=== PATIENT | female | born 1990 | race Caucasian/White ===

== ENCOUNTER 2021-03-17 16:11 | Inpatient (IN) | payer BC, SELFPAY ==
[2021-03-17] VITALS (23 sets, daily range): BP systolic 104–193; BP diastolic 51–94; PULSE 82–110; TEMP 36–36.4; BMI 47.4
[2021-03-17 17:22] LABS: Basophils % 0.1 %; Eosinophils % 0.1 %; Hematocrit 32.4 % (37.0-47.0); Hemoglobin 10.3 g/dL (11.5-15.3); Mean Corpuscular HGB Conc 31.8 g/dL (30.0-36.0); Mean Corpuscular Hemoglobin 29.3 pg (28.0-34.0); Mean Platelet Volume 10.1 fL (7.4-10.4); Monocytes # 0.5 10^3/uL (0.2-0.9); Monocytes % 7.6 %; Neutrophils # 5.41 10^3/uL (1.8-7.7); Neutrophils % 77.9 %; Nucleated Red Blood Cells % 0 %; Platelet Count 232 10^3/cmm (130-400); Red Blood Count 3.52 10^6/uL (4.1-5.3); Red Cell Distribution Width 14.8 % (12.1-15.1)
[2021-03-17 18:03] LABS: Add Urine Microscopic? YES; Bilirubin Urine Neg (Negative); Blood Urine 2+ (Negative); Glucose Urine UA Norm (Normal); Ketones Urine 2+ (Negative); Leukocyte Esterase Urine Negative (Negative); Nitrate Urine Negative (Negative); Protein Urine Neg (Negative); Specific Gravity, Urine 1.015 (1.005-1.030); Urine Appearance Clear (CLEAR); Urine Color Yellow (Yellow); Urobilinogen Urine Norm (Negative); pH Urine 6.5 (5-7)
[2021-03-17 18:04] LABS: Add Urine Culture? No; Bacteria Urine 2+ /hpf; RBC Urine 0-4 /hpf (0-2)
[2021-03-17] MEDS: dextrose 5%-lactated ringers 1,000 ML 125 ML IV (18:11)
[2021-03-17] MEDS: ampicillin 2,000 MG in sodium chloride 0.9% (plus) 50 ML 100 MG IV (18:11)
[2021-03-17] MEDS: miSOPROStol 100 mcg tablet 25 MCG VAGINAL ×2 (18:20→23:08)
[2021-03-17] MEDS: labetalol 5 mg/mL SDV 20mL 20 MG IVP (18:59)
[2021-03-17 19:17] LABS: Urine Creatinine 129 mg/dL (28-217)
[2021-03-17 19:19] LABS: Alanine Aminotransferase 9 U/L (0-33); Albumin Level 3.3 g/dL (3.5-5.2); Alkaline Phosphatase 84 IU/L (35-105); Anion Gap 13.7 (5-19); Aspartate Amino Transferase 16 U/L (0-32); Blood Urea Nitrogen 7 mg/dL (6-20); Calcium 8.3 mg/dL (8.5-10.5); Carbon Dioxide 22 mmol/L (22-29); Chloride 106 mmol/L (98-107); Globulin 2.7 g/dL (1.3-4.6); Glomerular Filtration Rate 187.4 mL/min (90-130); Glucose 98 mg/dL (65-115); Osmolality Calculated 284 mOsm/kg (285-295); Potassium 3.7 mmol/L (3.5-5.1); Sodium 138 mmol/L (136-145); Total Bilirubin 0.2 mg/dL (0.15-1.2); Uric Acid 3.8 mg/dL (2.4-5.7)
[2021-03-17 19:21] LABS: UPRO/UCREAT Ratio 0.17 mg/mg CR; Urine Protein Random 22 mg/dL
[2021-03-17] MEDS: magnesium sulfate premix 4 GM/100 ML PREMIX IV (20:13)
[2021-03-17] MEDS: dextrose 5%-lactated ringers 1,000 ML 100 ML IV (20:14)
[2021-03-17] MEDS: magnesium sulfate premix 20 GM/500 ML BAG IV (20:40)
[2021-03-17] MEDS: ampicillin 1,000 MG in sodium chloride 0.9% (plus) 50 ML 100 MG IV (22:38)
[2021-03-18] VITALS (197 sets, daily range): BP systolic 103–167; BP diastolic 46–105; PULSE 71–113; RESP 15–17; TEMP 35.6–36.1; O2SAT 93–100
[2021-03-18] MEDS: fentaNYL 50 mcg/mL INJ 2mL IVP ×2 (00:17→13:04)
[2021-03-18] MEDS: alum-mag-hydroxide-sime 30 mL UDC PO (01:52)
[2021-03-18] MEDS: ampicillin 1,000 MG in sodium chloride 0.9% (plus) 50 ML 100 MG IV (02:46)
[2021-03-18] MEDS: acetaminophen 325 mg Tablet 650 MG PO (02:46)
[2021-03-18] MEDS: ondansetron 2 mg/ML SDV 2 mL 4 MG IVP ×3 (02:47→14:10)
[2021-03-18] MEDS: miSOPROStol 100 mcg tablet 25 MCG VAGINAL (03:48)
[2021-03-18] MEDS: magnesium sulfate premix 20 GM/500 ML BAG IV ×2 (06:26→16:44)
[2021-03-18] MEDS: SODIUM CHLORIDE 0.9% IV (08:40)
[2021-03-18] MEDS: AMPICILLIN IV (08:40)
--- NOTE | 2021-03-18 09:25 | ANES.PROC ---
Anesthesia Procedures Procedure/Date: 03/18/21 Epidural: Time Out Performed: Yes Consents Signed: Procedure Consent and NPO Consent Consent: requested by attending/covering physician, from patient, risks and benefits reviewed and patient agrees to proceed Lumbar Level: L3-L4 Epidural position: sitting Epidural procedure: sterile prep of area, 1% lidocaine to numb the area, 18 g needle, negative for paresthesia passed, neg for paresthesia, test dose given, 1.5% xylocaine 1:200k epi (5), 0.2% Ropivacaine bolus ml (5), placed PCEA, no systemic response, sterile dressing applied, L.U.D. no apparent complications and 0.2% Ropiavacaine @ mls/hr (13) Additional Comments: ALY at 7 cm, threaded to 13 cm
[2021-03-18] MEDS: oxytocin 30 UNIT/500 ML BAG IV (11:27)
--- NOTE | 2021-03-18 13:54 | ANES.PROC ---
Anesthesia Procedures Procedure/Date: 03/18/21 Epidural: Time Out Performed: Yes Consents Signed: Procedure Consent, NPO Consent and No Consent Needed Consent: requested by attending/covering physician, from patient, risks and benefits reviewed and patient agrees to proceed Lumbar Level: L3-L4 Epidural position: sitting Epidural procedure: sterile prep of area, 1% lidocaine to numb the area, 18 g needle, negative for paresthesia passed, neg for paresthesia, test dose given, 1.5% xylocaine 1:200k epi, placed PCEA, no systemic response, sterile dressing applied, L.U.D. no apparent complications and 0.2% Ropiavacaine @ mls/hr (13) Additional Comments: ALY at 7 cm, threaded to 13 cm Other Information: Patient hypotensive and had syncopal epsisode. IV bolus given by nurse and verbal order to pause pump. After BP stabilzed over next couple of hours nurse asked for verbal order to restart, but it was discovered at that time that the epidural tubing had become disconnected from the yellow cap. Time of occurrence was unknown, so decision was made to replace epidural due to risk of infection. Upon removing epidural, tape was also up d/t to excess patient's excess perspiration and catheter was now 12 cm at skin. Epidural removed, skin cleansed with chloraprep. Benzoin spray used to secure new epidural dressing in place. No bolus given d/t prior syncope and pump started at 10 ml/hr.
[2021-03-18] MEDS: miSOPROStol 200 mcg Tablet 800 MCG PR (14:41)
--- NOTE | 2021-03-18 14:57 | P.PCNOB_ITS ---
Delivery Note: Date of delivery: March 18, 2021 Pre-delivery diagnoses: 1. 37-week estimated gestational age female 2. Preeclampsia Post-delivery diagnoses: Same Op report anesthesia: Epidural Estimated blood loss (mL): 800 Pre-Delivery Course: The patient presented to the hospital the night prior to delivery due to gestational hypertension. After arriving the hospital she was noted to have a number of severe blood pressures. She is given labetalol x1. She was started on magnesium. A preeclamptic panel was performed which was found to be negative. She was then given Cytotec 25 mcg x 3 an epidural was placed. An amniotomy was performed. The patient progressed to complete without difficulty. Delivery: DELIVERY: The patient progressed to complete without difficulty. She delivered a male with a weight of 6 pounds 12 ounces with Apgars of 8, 9. The baby was delivered from the OP position and placed on the mother's abdomen. The cord was then clamped and cut 1 minute after delivery. There was a nuchal cord x1. There was no meconium. The placenta and 3 vessel cord were delivered intact shortly thereafter. The perineum and vaginal vault were carefully examined. Several small vaginal wall lacerations with minimal bleeding were noted. Both the mother and the baby were in stable condition. A&P Assessment and plan (1) 37 weeks gestation of : Status: Acute (2) Preeclampsia: The patient has not had any other signs or symptoms of preeclampsia other than her initial elevated blood pressures. The patient has been known to spike high blood pressures in the past when she is anxious. As such, the possibility that her elevated blood pressures were mostly a function of her anxiety is high. I am going to keep her on magnesium for 12 hours . And we will adjust her approach depending on her blood pressures. 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
[2021-03-18] MEDS: carboprost tromethamine 250 mcg/mL Amp IM (15:04)
[2021-03-18] MEDS: oxytocin 30 UNIT/500 ML BAG 600 UNIT IV (15:11)
[2021-03-18] MEDS: dextrose 5%-lactated ringers 1,000 ML 125 ML IV (16:44)
[2021-03-18] MEDS: HYDROcodone-acetaminophen 5-325 mg Tablet PO (18:19)
[2021-03-18] MEDS: docusate sodium 100 mg Capsule PO (18:19)
[2021-03-18 20:07] LABS: Hematocrit 28.2 % (37.0-47.0); Hemoglobin 8.8 g/dL (11.5-15.3); Mean Corpuscular HGB Conc 31.2 g/dL (30.0-36.0); Mean Corpuscular Hemoglobin 29.3 pg (28.0-34.0); Mean Platelet Volume 9.9 fL (7.4-10.4); Platelet Count 215 10^3/cmm (130-400); Red Cell Distribution Width 14.8 % (12.1-15.1); White Blood Count 12.4 10^3/uL (4.0-10.0)
[2021-03-19] VITALS (25 sets, daily range): BP systolic 117–158; BP diastolic 56–109; PULSE 68–93; RESP 16; TEMP 36.1–36.7
[2021-03-19 04:58] LABS: Hematocrit 25.8 % (37.0-47.0); Mean Corpuscular Hemoglobin 29.5 pg (28.0-34.0); Mean Corpuscular Volume 95.2 fL (81-99); Mean Platelet Volume 9.7 fL (7.4-10.4); Platelet Count 176 10^3/cmm (130-400); Red Blood Count 2.71 10^6/uL (4.1-5.3); Red Cell Distribution Width 15.1 % (12.1-15.1); White Blood Count 7.7 10^3/uL (4.0-10.0)
--- NOTE | 2021-03-19 05:15 | PM.OBGYDC ---
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 She had not had any other symptoms of preeclampsia but she had had several blood pressures with a systolic blood pressure greater than 140s. As result she presented to the hospital where she was placed on Cytotec 25 mcg x 3. As a part of her initial evaluation she is found to have multiple systolic blood pressures that were greater than 160. As result the hypertensive protocol was initiated. She was placed on magnesium. Preeclamptic panel was performed which was found to be completely negative. After her initial dose of labetalol, no further doses of labetalol were necessary. After 3 doses of Cytotec, an amniotomy was performed. Her labor was later augmented with Pitocin. She progressed to complete and had an unremarkable delivery of a healthy appearing 37-week male . She did have moderate hemorrhage. She was given tranexamic acid. She was placed on Hemabate. She is given extra Pitocin. She also received Cytotec. Her bleeding eventually improved. She was maintained on magnesium for 12 hours . The remainder of her hospital stay was unremarkable. Information Peripartum Data: Delivery Method: Vaginal Physical Exam Narrative: EXAM NARRATIVE: The patient is alert. She appears comfortable. Her heart has a regular rate and rhythm with no murmurs appreciated. Lungs are clear to auscultation bilaterally. Her fundus is very firm and slightly above the umbilicus. Urinary Catheter Management^: Skinner: Cath Placed During This Visit: yes, but has since been removed by the nurse Reason for Continuing Indwelling Catheter: Accurate Measurement of Urinary Output in Critically Ill Patients Urinary Catheter Date of Insertion: 03/17/21 Urinary Catheter Time of Insertion: 20:10 Date Urinary Catheter Removed: 03/19/21 Time Urinary Catheter Discontinued: 02:00 Discharge Data Data Completed and Pending: Labs from last 24 hours 03/19/21 03/18/21 04:45 19:45 WBC 7.7 12.4 H RBC 2.71 L 3.00 L Hgb 8.0 L 8.8 L Hct 25.8 L 28.2 L MCV 95.2 94.0 MCH 29.5 29.3 MCHC 31.0 31.2 RDW 15.1 14.8 Plt Count 176 215 MPV 9.7 9.9 Vitals: Last Vital Signs Temp 97.0 F L 03/19/21 00:35 Pulse 76 03/19/21 04:29 Resp 17 03/18/21 15:59 BP 121/59 03/19/21 04:29 Pulse Ox 100 03/18/21 14:25 Discharge Plan Discharge Patient Disposition: Home Condition: Stable Prescriptions: New hydrocodone-acetaminophen 5-325 mg Tablet 1 tab PO Q6H PRN (Reason: Moderate To Severe Pain) Qty: 20 RF: 0 Continued ncpziivj-xay-Nb-FA 1 mg Tablet 1 tab PO DAILY RF: 0 Discharge Orders: Discharge Order (Routine); Ordered 03/19/21 Ordered By: Carloz Flores Referrals: Carloz Flores MD [Primary Care Provider] - 4-7 days (Also set up visit in 6 weeks.) Discharge Diet: Usual diet Discharge Activity: Limit activity as instructed Patient Instructions: Opioid Safety Discharge Attestations WHOLESALE PARTS SALESPERSON Time Spent in Discharge Care*: less than 30 min Specific Discharge Activities: Specific discharge activities: educating patient Coding Level of Care Code Acute Resolution Agent for Chg Fwd Diagnoses Spontaneous vaginal delivery O80 Preeclampsia O14.90 37 weeks gestation of Z3A.37
[2021-03-19] MEDS: prenatal vitamin Capsule 1 CAP PO (08:55)
[2021-03-19] MEDS: docusate sodium 100 mg Capsule PO ×2 (08:55→18:03)
--- NOTE | 2021-03-19 09:42 | ANE.PACU2 ---
Inpatient post-anesthesia follow up: Airway intact: Yes Vital signs: Temperature 97.0 F Pulse Rate 81 Respiratory Rate 17 Blood Pressure 117/62 Pulse Oximetry 100 Oxygen Delivery Me thod Room Air Oxygen Flow Rate 10 Fraction of Inspir ed Oxygen Hydration adequate: Yes Nausea and vomiting: No Pain level: 2 Mental status: Baseline Additional Comments: Bruising at epidural site, mild tenderness to palpation. No erythema, no purulence. Denies headache, residual numbness/tingling/weakness in legs. Epidural tubing had become disconnected at hub for unknown length of time and dressing was loose due to perspiration with site exposure for first epidural catheter. Informed patient and partner to continue to monitor for signs of infection such as purulence, erythema, increased pain, fever or neurologic deficits such as loss of bowel or bladder control, and leg numbness/weakness.
--- NOTE | 2021-03-19 16:56 | PC.NURSE ---
update to Dr Flores. ok to d/c home, follow up early next week as discussed with pt this morning
[2021-03-19] MEDS: measles,mumps,rubella pf Vial (w/diluent) 0.5 ML SUBCUT (18:03)
== END 2021-03-19 19:01 | disposition home or self-care (01) | DRG 807 ==
LOC: OPOB 16:14 → OBGYN 16:15 → OPOB 16:18 → OBGYN 16:23
PROVIDERS: Admitting Provider Family Medicine; PCP Family Medicine; Visit Provider Family Medicine
DX: O13.4 Gestational [pregnancy-induced] hypertension without significant proteinuria, complicating childbirth (principal); Z37.0 Single live birth; O69.81X0 Labor and delivery complicated by cord around neck, without compression, not applicable or unspecified; Z3A.37 37 weeks gestation of pregnancy
CPT/HCPCS: 12345; 51702; 59409; 80053; 81001; 82570; 84156; 84550; 85025; 85027; 90707; 96372; 96374; 96375; J0290; J2405; J2795; J3010; J3475; J3490

== ENCOUNTER 2021-12-15 09:54 | Observation (INO) | payer BC, SELFPAY ==
[2021-12-15] VITALS (12 sets, daily range): BP systolic 96–135; BP diastolic 59–95; PULSE 83–144; RESP 18–24; TEMP 36.4–36.6; O2SAT 95–99; BMI 43.4
--- NOTE | 2021-12-15 10:15 | W.ED.ARRPALP ---
HPI - Arrhythmia/Palpitations General: Chief Complaint: Arrhythmia/Palpitations Stated Complaint: SOB, High Heart Rate Time Seen by Provider: 12/15/21 10:11 Source: patient Mode of arrival: ambulatory Limitations: no limitations History of Present Illness: 31-year-old female presents to the emergency room with a complaint of rapid heart rate and shortness of breath. This began yesterday she has a monitor at home and the monitor was reading up in the 70s with her heart racing this morning was reading in the 140s. It is intermittently been bothering her overnight she has not taken any decongestants use any nasal sprays no other prescription medication she is not on any eehj-epx-gzbeper or prescription medications that have changed recently. She has no known history of A. fib or SVT. She is not had any chest pain. No recent long travel in car or airplane. MD complaint: rapid heart beat and heart racing Onset (ago): day(s) (1) Duration: constant Severity: moderate Context: occurred during rest Associated symptoms: Reports anxiety and short of breath; Deny cough, diaphoresis, muscle cramps, nausea, paresthesias, pre-syncope, sense of impending doom, syncope or vomiting Review of Systems Const: Denies: fever(s), chills or diaphoresis ENMT: Denies: throat pain, ear or mastoid pain, nasal discharge or nasal congestion Card: Reports: palpitations and lightheadedness; Denies: chest pain, irregular heart rhythm, syncope or pre-syncope Resp: Reports: dyspnea; Denies: productive cough or non-productive cough GI: Denies: abdominal pain, nausea or vomiting : Denies: flank pain, difficulty voiding, dysuria, urinary frequency or urinary urgency Musc: Denies: muscle cramps Skin/Breast: Denies: rash or pruritus Psych: Reports: anxiety PFSH ED PFSH: Medical History 37 weeks gestation of Morbid obesity Preeclampsia Spontaneous vaginal delivery Family History Other CAD (coronary artery disease) Clotting disorder Social History Smoking and tobacco status: never smoked Alcohol intake: never Substance/Drug Use: never Caregiver/support person: Yes Lives independently: Yes Household members: family Housing: House Marital status: Physical Exam Const: COMMON NORMALS: no acute distress GENERAL APPEARANCE: cooperative and comfortable ORIENTATION/CONSCIOUSNESS: Yes awake, Yes oriented to person, Yes oriented to place and Yes oriented to time HENMT: COMMON NORMALS: normocephalic, atraumatic and hearing grossly normal bilaterally HEAD & SCALP: normocephalic and atraumatic Neck/C-Spine: COMMON NORMALS: no JVD Resp: COMMON NORMALS: normal respiratory effort, No retractions, No use of accessory muscles and clear to auscultation bilaterally AUSCULTATION: clear to auscultation bilaterally Cardio: COMMON NORMALS: no JVD, regular rhythm and No murmurs present (Cardio) RATE: tachycardic RHYTHM: regular rhythm GI: COMMON NORMALS: Soft to palpation and No hepatosplenomegaly present AUSCULTATION: Yes normoactive bowel sounds PALPATION: Yes Soft to palpation, No Tenderness to palpation present (GI), No Guarding due to palpation present (GI) and Yes No hepatosplenomegaly present : COMMON NORMALS: Yes no CVA tenderness BLADDER/KIDNEY EXAM: Yes no CVA tenderness Back/Pelvis: COMMON NORMALS: no CVA tenderness Extremity: COMMON NORMALS: normal to inspection, capillary refill normal, no clubbing, cyanosis or edema, no calf tenderness and no pedal edema Neuro: SENSORIUM/ORIENTATION: Yes oriented to person, Yes oriented to place and Yes oriented to time Skin: COMMON NORMALS: no rashes or lesions noted GENERAL SKIN EXAM: no rashes or lesions noted Course Vital Signs: Vital signs: Vital Signs Temperature 97.5 F L 12/15/21 10:13 Pulse Rate 105 H 12/15/21 15:46 Respiratory Rate 19 H 12/15/21 15:46 Blood Pressure 127/83 12/15/21 15:46 Pulse Oximetry 95 12/15/21 15:46 MDM - Arrhythmia/Palpitations Medical Decision Making Patient has significant elevation in troponin. This concerned that it may be a lab error so repeated and it was consistent. She was very sensitive to the beta-michael and her rate has been well controlled now. CTA of the chest showed no PE but did show questionable groundglass infiltrates. Will test for COVID have discussed with hospitalist will admit and consult cardiology. Also ordered a echocardiogram. Medical Records I reviewed the patient's medical records. Lab Data I reviewed the patient's lab results. : 12/15/21 10:21 12/15/21 10:21 Radiology Impressions Chest X-Ray 12/15/21 10:19 IMPRESSION: Unremarkable chest radiograph. Chest CTA 12/15/21 11:50 IMPRESSION: 1. Proximal main pulmonary arteries are normal. No evidence of pulmonary embolus. 2. Slight hazy groundglass opacities in the LEFT greater than RIGHT upper lobes likely infectious or inflammatory. No focal pneumonia or pleural fluid. 3. No other significant findings. Laboratory Results WBC 16.1 10^3/uL (4.0-10.0) H 12/15/21 10:21 RBC 4.60 10^6/uL (4.1-5.3) 12/15/21 10:21 Hgb 12.9 g/dL (11.5-15.3) 12/15/21 10:21 Hct 40.6 % (37.0-47.0) 12/15/21 10:21 MCV 88.3 fl (81-99) 12/15/21 10:21 MCH 28.0 pg (28.0-34.0) 12/15/21 10:21 MCHC 31.8 g/dL (30.0-36.0) 12/15/21 10:21 RDW 14.7 % (12.1-15.1) 12/15/21 10:21 Plt Count 264 10^3/cmm (130-400) 12/15/21 10:21 MPV 9.7 fL (7.4-10.4) 12/15/21 10:21 Neut % (Auto) 90.1 % 12/15/21 10:21 Lymph % (Auto) 5.4 % 12/15/21 10:21 [place] % (Auto) 3.7 % 12/15/21 10:21 Eos % (Auto) 0.1 % 12/15/21 10:21 Baso % (Auto) 0.2 % 12/15/21 10:21 Neut # (Auto) 14.53 10^3/uL (1.8-7.7) H 12/15/21 10:21 Lymph # (Auto) 0.9 10^3/uL (0.8-4.8) 12/15/21 10:21 [place] # (Auto) 0.6 10^3/uL (0.2-0.9) 12/15/21 10:21 Eos # (Auto) 0.0 10^3/uL (0.0-0.8) 12/15/21 10:21 Baso # (Auto) 0.0 10^3/uL (0.0-0.1) 12/15/21 10:21 Nucleated RBC % (auto) 0 % 12/15/21 10:21 Nucleated RBCs # 0.0 /100WBC 12/15/21 10:21 ESR 22 mm/hr (0-15) H 12/15/21 10:21 D-Dimer 0.48 ug/mIFEU (0-0.59) 12/15/21 10:21 Sodium 137 mmol/L (136-145) 12/15/21 10:21 Potassium 4.1 mmol/L (3.5-5.1) 12/15/21 10:21 Chloride 104 mmol/L (98-107) 12/15/21 10:21 Carbon Dioxide 20 mmol/L (22-29) L 12/15/21 10:21 Anion Gap 17.1 (5-19) 12/15/21 10:21 BUN 16 mg/dL (6-20) 12/15/21 10:21 Creatinine 0.6 mg/dL (0.5-0.9) 12/15/21 10:21 GFR Calculation 117.4 mL/min (90-130) 12/15/21 10:21 Glucose 100 mg/dL (65-115) 12/15/21 10:21 Calculated Osmolality 285 mOsm/kg (285-295) 12/15/21 10:21 Lactic Acid 2.3 mmol/L (0.5-2.2) H 12/15/21 10:21 Lactic Acid (Sepsis) 1.2 mmol/L (0.5-2.2) 12/15/21 12:50 Calcium 9.5 mg/dL (8.5-10.5) 12/15/21 10:21 Magnesium 2.0 mg/dL (1.7-2.3) 12/15/21 10:21 Iron 17 ug/dL (37-145) L 12/15/21 13:44 TIBC 346 mcg/dl 12/15/21 13:44 % Saturation 4.9 % (20-50) L 12/15/21 13:44 Unsat Iron Binding 329 ug/dL (112-347) 12/15/21 13:44 Total Bilirubin 0.4 mg/dL (0.15-1.2) 12/15/21 10:21 AST 23 U/L (0-32) 12/15/21 10:21 ALT 13 U/L (0-33) 12/15/21 10:21 Alkaline Phosphatase 44 IU/L (35-105) 12/15/21 10:21 Creatine Kinase 73 U/L (26-192) 12/15/21 13:44 Troponin T Gen 5 ng/L 151 ng/L (0-10) H* 12/15/21 13:44 Troponin T Baseline 13 ng/L (0-10) H 12/15/21 10:21 Troponin T 120 Minute 169.3 ng/L (0-10) H 12/15/21 12:42 Delta Troponin T 156.3 ABS# (0-10) H* 12/15/21 12:42 C-Reactive Protein 79.9 mg/L (0.0-4.9) H 12/15/21 13:44 Total Protein 7.1 g/dL (6.6-8.7) 12/15/21 10:21 Albumin 4.3 g/dL (3.5-5.2) 12/15/21 10:21 Globulin 2.8 g/dL (1.3-4.6) 12/15/21 10:21 Lipase 32 U/L (13-60) 12/15/21 10:21 TSH 2.93 uIU/mL (0.27-4.20) 12/15/21 10:21 HCG, Qual Negative (Negative) 12/15/21 10:21 Discharge Plan Discharge Patient Disposition: Admitted As Inpatient Admit Provider: Matthew Jarvis Clinical Impression: Elevated troponin, Tachycardia, Shortness of breath Condition: Stable Coding Level of Care Code ED Bias Cutting Machine Operator for Alejandro Rizo
--- NOTE | 2021-12-15 10:19 | XR_ITS ---
WS: [id number] Exam: XR chest 1V portable [id number] Date/Time of Exam: 12/15/2021 10:25 AM Reason For Exam: dyspnea No priors. Findings: The lungs are clear and fully expanded. Costophrenic angles are sharp. No infiltrates. Bronchovascula r relief appears normal. Cardiac silhouette is unremarkable. Bony elements are intact. XR/XR chest 1V portable [id number] IMPRESSION: Unremarkable chest radiograph.
--- NOTE | 2021-12-15 10:19 | ECG_ITS ---
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 Measurements Intervals [place] Rate: 106 P: 42 ID: [id number] QRS: 70 QRSD: 100 T: 9 QT: 325 QTc: 432 Interpretive Statements SINUS TACHYCARDIA POSSIBLE RIGHT VENTRICULAR CONDUCTION DELAY [RSR (QR) IN V1/V2] ABNORMAL RHYTHM ECG No previous ECG available for comparison Electronically Signed On 12-15-2021 18:56:13 CDT by Lynnette Macedo M.D. [email or web address]
[2021-12-15] MEDS: metoprolol tartrate 1 mg/1 mL SDV 5 mL 5 MG IVP (10:34)
[2021-12-15] MEDS: metoprolol tartrate 25 mg Tablet PO ×2 (10:34→20:23)
[2021-12-15 10:45] LABS: Basophils % 0.2 %; Eosinophils % 0.1 %; Hematocrit 40.6 % (37.0-47.0); Hemoglobin 12.9 g/dL (11.5-15.3); Lymphocytes # 0.9 10^3/uL (0.8-4.8); Lymphocytes % 5.4 %; Mean Corpuscular HGB Conc 31.8 g/dL (30.0-36.0); Mean Corpuscular Volume 88.3 fl (81-99); Mean Platelet Volume 9.7 fL (7.4-10.4); Monocytes # 0.6 10^3/uL (0.2-0.9); Monocytes % 3.7 %; Neutrophils # 14.53 10^3/uL (1.8-7.7); Neutrophils % 90.1 %; Nucleated Red Blood Cells % 0 %; Platelet Count 264 10^3/cmm (130-400); Red Cell Distribution Width 14.7 % (12.1-15.1); White Blood Count 16.1 10^3/uL (4.0-10.0)
[2021-12-15 10:53] LABS: Alanine Aminotransferase 13 U/L (0-33); Albumin Level 4.3 g/dL (3.5-5.2); Alkaline Phosphatase 44 IU/L (35-105); Blood Urea Nitrogen 16 mg/dL (6-20); Calcium 9.5 mg/dL (8.5-10.5); Carbon Dioxide 20 mmol/L (22-29); Chloride 104 mmol/L (98-107); Globulin 2.8 g/dL (1.3-4.6); Glomerular Filtration Rate 117.4 mL/min (90-130); Glucose 100 mg/dL (65-115); Lipase 32 U/L (13-60); Osmolality Calculated 285 mOsm/kg (285-295); Sodium 137 mmol/L (136-145); Total Bilirubin 0.4 mg/dL (0.15-1.2); Total Protein 7.1 g/dL (6.6-8.7)
[2021-12-15 10:54] LABS: Lactic Sepsis W/Reflex 2.3 mmol/L (0.5-2.2); Troponin(5th) Baseline 13 ng/L (0-10)
[2021-12-15 10:57] LABS: Anion Gap 17.1 (5-19); Potassium 4.1 mmol/L (3.5-5.1)
[2021-12-15 10:58] LABS: Aspartate Amino Transferase 23 U/L (0-32)
[2021-12-15] MEDS: sodium chloride 0.9% 1,000 ML 999 ML IV ×2 (11:30→12:42)
--- NOTE | 2021-12-15 11:50 | CT_ITS ---
WS: [id number] CTA OF THE CHEST WITH PULMONARY EMBOLISM PROTOCOL TECHNIQUE: High-resolution contrast enhanced CTA of the chest with coronal and sagittal reformatted i mages with pulmonary embolism protocol. MIP images are also reviewed. CLINICAL INFORMATION: tachycardia/dyspnea COMPARISON: None. DLP: 591.[address] scans at [facility] use at least one of these dose optimization techniques: automated e xposure control; mA and/or kV adjustment per patient size (includes targeted exams where dose is matc hed to clinical indication); or iterative reconstruction. FINDINGS: Both lungs are well aerated. No focal consolidation or pleural fluid. Subtle hazy groundglass opaciti es in the LEFT greater than RIGHT upper lobes likely infectious or inflammatory. No mediastinal or hilar lymphadenopathy. No axillary lymphadenopathy. Adrenal glands are normal. Proximal main pulmonary arteries are normal. Normal segmental and subsegmental pulmonary arteries. No evidence of pulmonary embolus. CT/CT angio chest PE protcl [id number] IMPRESSION: 1. Proximal main pulmonary arteries are normal. No evidence of pulmonary embol us. 2. Slight hazy groundglass opacities in the LEFT greater than RIGHT upper lobe s likely infectious or inflammatory. No focal pneumonia or pleural fluid. 3. No other significant findings.
[2021-12-15 12:01] LABS: HCG, Serum Qual Negative (Negative)
[2021-12-15 12:16] LABS: Reflex Lactate Order REFLEX LACTIC ORDERD
--- NOTE | 2021-12-15 12:19 | ECG_ITS ---
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 Measurements Intervals [place] Rate: 101 P: 56 OR: 148 QRS: 89 QRSD: 98 T: 46 QT: 347 QTc: 450 Interpretive Statements SINUS TACHYCARDIA INCOMPLETE RIGHT BUNDLE BRANCH BLOCK [90+ ms QRS DURATION, TERMINAL R IN V1/V2, 40+ ms S IN I/aVL/V4/V5/V6] ABNORMAL RHYTHM ECG Compared to ECG 12/15/2021 10:50:52 Incomplete right bundle-branch block now present Electronically Signed On 12-16-2021 22:32:32 CDT by George Nascimento M.D. [id number]
--- NOTE | 2021-12-15 12:33 | PC.NURSE ---
informed dr. nava of bp of 86/60 verbalized understanding vo toadm 1 l of ns at 999ml/hr.
--- NOTE | 2021-12-15 12:43 | PC.NURSE ---
1030 PT placed on continuos NIBP, SpO2, and CM
[2021-12-15 13:05] LABS: Thyroid Stimulating Hormone 2.93 uIU/mL (0.27-4.20)
[2021-12-15 13:12] LABS: Lactic Acid level (Lactate) 1.2 mmol/L (0.5-2.2)
[2021-12-15 13:22] LABS: Troponin 5 2HR 169.3 ng/L (0-10)
[2021-12-15 13:23] LABS: Troponin 5 2HR Delta 156.3 ABS# (0-10)
[2021-12-15] MEDS: iohexol 350 mg/mL 100 mL Btl IV (13:44)
[2021-12-15] MEDS: enoxaparin 120 mg/0.8 mL Syringe 110 MG SUBCUT (13:56)
[2021-12-15 14:03] LABS: Troponin T (5th) Once 151 ng/L (0-10)
--- NOTE | 2021-12-15 14:19 | PC.NURSE ---
DR. DUNNE AT BEDSIDE SPEAKING WITH PT. PT IS IN NAD.
--- NOTE | 2021-12-15 14:35 | PM.CONSULT ---
Providers/Reason For Consult Consulting Physician/Specialty*: George Nascimento MD/ Cardiology Reason for Consult*: Chest pain/ tachycardia Requesting Physician: Dr Collins Primary Care Provider: Carloz Flores MD History of Present Illness History of Present Illness Ileana Palmer is a 31 year old female with no significant prior cardiac history presented with symptoms of palpitations and chest discomfort. According to patient the night before admission she was having chest discomfort and palpitations. Chest pain was worse with breathing. It resolved after a couple of hours. Again this morning her pulse ox showed her heart rate was in 140s. She had chest discomfort to the hospital was found to have sinus tachycardia no ischemic changes noted. Troponin went significantly from 13 to 169 at 2 hours. Review of Systems Narrative: CONSTITUTIONAL: No fever chills weight loss or gain or night sweats. [] HEENT: Normocephalic, atraumatic.[] RESPIRATORY: No cough, sputum, hemoptysis or wheezing.[] CARDIOVASCULAR: No shortness of breath, chest pain, PND, orthopnea, lower extremity edema, presyncope or syncope. [] GI: no nausea vomiting diarrhea. [] TECHNICAL SERVICES LIBRARIAN: No numbness, tingling, weakness or loss of function in any part of the body. [] MUSCULOSKELETAL: No knee or joint pain or rashes. [] Medications/Allergies Home Medications Medication Instructions Recorded Confirmed Last Taken Type cetirizine 10 mg tablet (Zyrtec) 10 mg PO DAILY 12/15/21 12/15/21 Unknown History fluticasone propionate 50 1 spray INTRANASAL DAILY 12/15/21 12/15/21 Unknown History mcg/actuation nasal spray,suspension vit no.95-ferrous 2 tab PO DAILY 12/15/21 12/15/21 Unknown History fumarate 28 mg-folic acid 800 mcg tablet ( Multivitamins) Allergies Allergy/AdvReac Type Severity Reaction Status Date / Time No Known Allergies Allergy Verified 12/15/21 11:08 PFSH Acute PFSH: Medical History 37 weeks gestation of Morbid obesity Preeclampsia Spontaneous vaginal delivery Family History Other CAD (coronary artery disease) Clotting disorder Social History Smoking and tobacco status: never smoked Alcohol intake: never Substance/Drug Use: never Caregiver/support person: Yes Lives independently: Yes Household members: family Housing: House Marital status: Vitals/I&O/Wt Last Vital Signs Temp 97.5 F L 12/15/21 10:13 Pulse 144 H 12/15/21 10:13 Resp 19 H 12/15/21 10:13 BP 126/90 12/15/21 10:13 Pulse Ox 99 12/15/21 10:13 12/14/21 12/15/21 12/15/21 22:59 06:59 14:59 Intake Total 1000 / 1000 Balance 1000 / 1000 Weight last 48 hrs Weight 245 lb Physical Exam Narrative: GENERAL: Patient is alert, awake and oriented x3. [] NECK: No jugular vein distension. [] HEENT: No cyanosis. No icterus. No pallor. [] HEART: Regular S1 and S2. No murmur, rub or gallop. [] LUNGS: Clear to auscultate bilaterally. [] ABDOMEN: Soft, nontender and nondistended. Positive bowel sounds. No guarding, rebound or tenderness. [] CENTRAL NERVOUS SYSTEM: Grossly nonfocal. [] EXTREMITIES: Lower extremities with no edema bilaterally. Pulses palpable in the lower extremities, both dorsalis pedis and posterior tibial. [] Data : 12/16/21 03:46 12/16/21 03:46 Micro: Microbiology 12/15/21 12:50 Blood Culture - Preliminary Blood SPECIMEN COLLECTED 12/15/21 10:21 Blood Culture - Preliminary Blood SPECIMEN COLLECTED A&P Assessment and plan (1) Chest pain: Status: Acute (2) Shortness of breath: Status: Acute (3) Tachycardia: Status: Acute (4) Elevated troponin: Status: Acute Plan Patient had episodes of chest pain, palpitations and shortness of breath. Troponins increased significantly. However chest pain is atypical. EKG does not show any ischemic changes. CTA does not reveal pulmonary embolism. Differentials at this time include SVT vsmyocarditis vs ischemia Monitor on telemetry Continue aspirin Order echocardiogram. If third set of troponins starts downtrending, will obtain exercise MIBI. Thank you for involving us with care of this patient. We will continue to follow. Please call with questions. Coding Level of Care Code Acute Aquatic Centre Manager for Chg Fwd Diagnoses Chest pain R07.9 Shortness of breath R06.02 Tachycardia R00.0 Elevated troponin R77.8
--- NOTE | 2021-12-15 15:39 | USCV_ITS ---
Ileana Palmer Age: 31 Gender: F : 1990 Exam Date: 12/15/2021 16:00 Ordering Phys: Giovani Collins DO Technologist: ABELARDO Exam Location: [facility] [place] Indication: ELEVATED TROP, HIGH HR BP: 127 / 83 HR: 97 Rhythm: Sinus Technical Quality: Adequate MEASUREMENTS (Male / Female) Normal Values 2D ECHO LV Diastolic Diameter PLAX 3.5 cm 4.2 - 5.9 / 3.9 - 5.3 cm LV Systolic Diameter PLAX 1.5 cm IVS Diastolic Thickness 1.1 cm 0.6 - 1.0 / 0.6 - 0.9 cm IVS Systolic Thickness 1.9 cm LVPW Diastolic Thickness 1.1 cm 0.6 - 1.0 / 0.6 - 0.9 cm LVPW Systolic Thickness 1.8 cm LVOT Diameter 2.0 cm LV Ejection Fraction 2D Teich 88.4 % LV Ejection Fraction MOD 2C 62.5 % LV Ejection Fraction 2C AL 62.9 % LA Diameter 2.5 cm LA Width 3.0 cm LA Height 4.5 cm RA Width 2.6 cm RA Height 4.4 cm Aorta at Sinotubular Diameter 2.8 cm M-MODE Aortic Annulus Diameter 2.8 cm LA Ao Ratio MM 0.9 MV E Point Septal Separation 0.3 cm DOPPLER AV Peak Velocity 115.0 cm/s LVOT Peak Velocity 94.0 cm/s AV Area Cont Eq vti 2.7 cm squared AV Area Cont Eq pk 2.5 cm squared MV Area PHT 4.6 cm squared Mitral E to A Ratio 0.8 MV E' Velocity 36.5 cm/s Mitral E to MV E' Ratio 5.5 Mitral E to LV E' Lateral Ratio 5.2 Mitral E to LV E' Septal Ratio 5.9 TR Peak Velocity 285.4 cm/s TR Peak Gradient 32.6 mmHg TR Mean Velocity 213.1 cm/s TR Mean Gradient 20.1 mmHg TR Velocity Time Integral 80.8 cm TV Peak E Velocity 70.0 cm/s Right Atrial Pressure 3.0 mmHg Pulmonary Artery Systolic Pressu 35.6 mmHg PV Peak Velocity 69.0 cm/s RV Acceleration Time 0.1 s RV Ejection Time 0.3 s RV AcT/ET 0.3 FINDINGS Left Ventricle Normal left ventricular size. LV systolic function is normal with EF of 55-60%. No regional wall motion abnormalities. Normal diastolic filling pattern. Right Ventricle Right ventricle is mildly dilated Right Atrium The right atrium is normal in size. Left Atrium The left atrium is normal in size. Mitral Valve Structurally normal mitral valve without significant stenosis or prolapse. Aortic Valve Structurally normal aortic valve without significant sclerosis or stenosis. There is no aortic regurgitation. Tricuspid Valve Structurally normal tricuspid valve without significant stenosis. Mild Tricuspid regurgitation. RVSP is 35-40mmHg. This is consistent with mild pulmonary hypertension Pulmonic Valve Structurally normal pulmonic valve without significant stenosis. There is no pulmonic regurgitation. Pericardium Normal pericardium without effusion. Aorta Normal ascending aorta dimension. CONCLUSIONS LV systolic function is normal with EF of 55-60% Normal diastolic function Right ventricle is mildly dilated Mild tricuspid regurgitation. Mild pulmonary hypertension No comparison studies are available George Nascimento MD (Electronically Signed) Final Date: 15 December 2021 17:31 S
--- NOTE | 2021-12-15 15:43 | PM.HP ---
Providers/Chief Complaint Primary Care Provider: Carloz Flores MD Chief Complaint: SOB, High Heart Rate History of Present Illness Ileana Palmer is a 31 year old female with no segment past medical history other than preeclampsia during presented to the ER today complaining of chest pressure in the retrosternal region since last night associated with shortness of breath and deep shallow breathing. Patient states she was laying comfortably in bed last night when she started having the symptoms. As these symptoms continued today morning so she presented to the ER. Patient denies of having any similar complaints in the past. States usually she can walk up to a mile without having any similar complaints. Is a lifetime non-smoker. Denies any recent or current runny nose, fever or viral symptoms. Does give history of viral prodrome and fever in children at home currently. Does give significant family history of CAD and DVT with stroke in mother. Mother had first KS at age 40. Denies any current medications other than Zyrtec and Flonase. Denies any changes in medications recently. Blood work in the ER showed a white count 16,000, hemoglobin of 12.9, sodium 137, potassium 4.1, creatinine 0.6, initial lactate 2.3 coming down to 1.2, AST/ALT of 23/13,-phosphatase of 44, baseline troponin of 13 with delta troponin of [address] done in the ER as below. Review of Systems General: Reports: 10 or more systems reviewed and unremarkable except in HPI and below Const: Denies: fever(s), chills, body aches, change in appetite, change in weight, malaise, night sweats, diaphoresis, change in sleep pattern, daytime sleepiness or snoring Eyes: Denies: change in vision, blurry vision, photophobia, eye discomfort or eye discharge ENMT: Denies: throat pain, enlarged tonsils, hoarseness, mouth pain, oral sores, dry mouth, tinnitus, nasal congestion or post nasal drip Card: Denies: chest pain, palpitations, irregular heart rhythm, edema, swelling of feet/ankles, lightheadedness, syncope, pre-syncope, dyspnea on exertion, orthopnea, leg pain with exertion or acrocyanosis Resp: Denies: dyspnea, productive cough, non-productive cough, wheezing, stridor, pain on inspiration, change in phlegm color, hemoptysis or chest congestion GI: Denies: abdominal pain, nausea, vomiting, hematemesis, coffee ground emesis, dysphagia, heartburn, diarrhea, constipation, bloating, GI cramping, change in bowel habits, pain on defecation, hematochezia or melena : Denies: flank pain, dysuria, urinary frequency, urinary urgency, urinary hesitancy, nocturia or hematuria Musc: Denies: neck pain, back pain, extremity pain, joint pain, joint swelling, joint redness, joint stiffness or limited range of motion Neuro: Denies: headache(s), numbness in extremities, weakness in extremities, sensory changes, lack of coordination, difficulty walking, frequent falls, dizziness, vertigo, confusion, Slurred speech present, difficulty communicating thoughts or seizure-like activity Psych: Denies: anxiety, depression, mood swings, panic attacks, hopelessness or irritability Endo: Denies: polyuria, polydipsia, tired all the time, cold intolerance, excessive sweating, flushing or heat intolerance Prabhjot/Lymph: Denies: easy bruising or easy bleeding All/Imm: Denies: tongue swelling, facial swelling or acute wheezing Medications/Allergies Home Medications Medication Instructions Recorded Confirmed Last Taken Type cetirizine 10 mg tablet (Zyrtec) 10 mg PO DAILY 12/15/21 12/15/21 Unknown History fluticasone propionate 50 1 spray INTRANASAL DAILY 12/15/21 12/15/21 Unknown History mcg/actuation nasal spray,suspension vit no.95-ferrous 2 tab PO DAILY 12/15/21 12/15/21 Unknown History fumarate 28 mg-folic acid 800 mcg tablet ( Multivitamins) Allergies Allergy/AdvReac Type Severity Reaction Status Date / Time No Known Allergies Allergy Verified 12/15/21 11:08 PFSH Acute PFSH: Medical History (Updated 12/15/21 @ 15:56 by Matthew Jarvis MD) 37 weeks gestation of Morbid obesity Preeclampsia Spontaneous vaginal delivery Family History (Updated 12/15/21 @ 15:44 by Matthew Jarvis MD) Other CAD (coronary artery disease) Clotting disorder Social History (Updated 12/15/21 @ 15:45 by Matthew Jarvis MD) Smoking and tobacco status: never smoked Alcohol intake: never Substance/Drug Use: never Caregiver/support person: Yes Lives independently: Yes Household members: family Housing: House Marital status: Vitals/I&O/Wt Last Vital Signs Temp 97.5 F L 12/15/21 10:13 Pulse 144 H 12/15/21 10:13 Resp 19 H 12/15/21 10:13 BP 126/90 12/15/21 10:13 Pulse Ox 99 12/15/21 10:13 12/15/21 12/15/21 12/15/21 06:59 14:59 22:59 Intake Total 1000 / 1000 Balance 1000 / 1000 Weight last 48 hrs Weight 111.13 kg Physical Exam Narrative: General: No acute distress, AO x3 HEENT: PERRLA, pupils bilaterally equal and reactive Chest: Normal vesicular breath sounds, no added sounds, equal good air entry bilaterally CVS: S1-S2 regular, no murmurs, no tachycardia, no gallops, no rubs Abdomen: Soft, nontender, no organomegaly, bowel sounds present Neuro: No focal deficits, no facial deformity, AO x3, power 5/5 in all limbs Data : 12/15/21 10:21 12/15/21 10:21 Other Labs: Radiology Impressions Chest X-Ray 12/15/21 10:19 IMPRESSION: Unremarkable chest radiograph. Chest CTA 12/15/21 11:50 IMPRESSION: 1. Proximal main pulmonary arteries are normal. No evidence of pulmonary embolus. 2. Slight hazy groundglass opacities in the LEFT greater than RIGHT upper lobes likely infectious or inflammatory. No focal pneumonia or pleural fluid. 3. No other significant findings. Laboratory Results WBC 16.1 10^3/uL (4.0-10.0) H 12/15/21 10:21 RBC 4.60 10^6/uL (4.1-5.3) 12/15/21 10:21 Hgb 12.9 g/dL (11.5-15.3) 12/15/21 10:21 Hct 40.6 % (37.0-47.0) 12/15/21 10:21 MCV 88.3 fl (81-99) 12/15/21 10:21 MCH 28.0 pg (28.0-34.0) 12/15/21 10:21 MCHC 31.8 g/dL (30.0-36.0) 12/15/21 10:21 RDW 14.7 % (12.1-15.1) 12/15/21 10:21 Plt Count 264 10^3/cmm (130-400) 12/15/21 10:21 MPV 9.7 fL (7.4-10.4) 12/15/21 10:21 Neut % (Auto) 90.1 % 12/15/21 10:21 Lymph % (Auto) 5.4 % 12/15/21 10:21 Drew % (Auto) 3.7 % 12/15/21 10:21 Eos % (Auto) 0.1 % 12/15/21 10:21 Baso % (Auto) 0.2 % 12/15/21 10:21 Neut # (Auto) 14.53 10^3/uL (1.8-7.7) H 12/15/21 10:21 Lymph # (Auto) 0.9 10^3/uL (0.8-4.8) 12/15/21 10:21 Drew # (Auto) 0.6 10^3/uL (0.2-0.9) 12/15/21 10:21 Eos # (Auto) 0.0 10^3/uL (0.0-0.8) 12/15/21 10:21 Baso # (Auto) 0.0 10^3/uL (0.0-0.1) 12/15/21 10:21 Nucleated RBC % (auto) 0 % 12/15/21 10:21 Nucleated RBCs # 0.0 /100WBC 12/15/21 10:21 Sodium 137 mmol/L (136-145) 12/15/21 10:21 Potassium 4.1 mmol/L (3.5-5.1) 12/15/21 10:21 Chloride 104 mmol/L (98-107) 12/15/21 10:21 Carbon Dioxide 20 mmol/L (22-29) L 12/15/21 10:21 Anion Gap 17.1 (5-19) 12/15/21 10:21 BUN 16 mg/dL (6-20) 12/15/21 10:21 Creatinine 0.6 mg/dL (0.5-0.9) 12/15/21 10:21 GFR Calculation 117.4 mL/min (90-130) 12/15/21 10:21 Glucose 100 mg/dL (65-115) 12/15/21 10:21 Calculated Osmolality 285 mOsm/kg (285-295) 12/15/21 10:21 Lactic Acid 2.3 mmol/L (0.5-2.2) H 12/15/21 10:21 Lactic Acid (Sepsis) 1.2 mmol/L (0.5-2.2) 12/15/21 12:50 Calcium 9.5 mg/dL (8.5-10.5) 12/15/21 10:21 Magnesium 2.0 mg/dL (1.7-2.3) 12/15/21 10:21 Total Bilirubin 0.4 mg/dL (0.15-1.2) 12/15/21 10:21 AST 23 U/L (0-32) 12/15/21 10:21 ALT 13 U/L (0-33) 12/15/21 10:21 Alkaline Phosphatase 44 IU/L (35-105) 12/15/21 10:21 Troponin T Gen 5 ng/L 151 ng/L (0-10) H* 12/15/21 13:44 Troponin T Baseline 13 ng/L (0-10) H 12/15/21 10:21 Troponin T 120 Minute 169.3 ng/L (0-10) H 12/15/21 12:42 Delta Troponin T 156.3 ABS# (0-10) H* 12/15/21 12:42 Total Protein 7.1 g/dL (6.6-8.7) 12/15/21 10:21 Albumin 4.3 g/dL (3.5-5.2) 12/15/21 10:21 Globulin 2.8 g/dL (1.3-4.6) 12/15/21 10:21 Lipase 32 U/L (13-60) 12/15/21 10:21 TSH 2.93 uIU/mL (0.27-4.20) 12/15/21 10:21 HCG, Qual Negative (Negative) 12/15/21 10:21 Micro: Microbiology 12/15/21 12:50 Blood Culture - Preliminary Blood SPECIMEN COLLECTED 12/15/21 10:21 Blood Culture - Preliminary Blood SPECIMEN COLLECTED A&P Assessment and plan (1) Elevated troponin: Status: Acute (2) Tachycardia: Status: Acute (3) Shortness of breath: Status: Acute (4) Chest pain: Status: Acute (5) Morbid obesity: Status: Acute Plan 31-year-old female with no significant past medical history other than preeclampsia with significant family history of early CAD in mother with KS at age 40, CVA and DVT in mother presented to the ER complaining of shortness of breath, chest heaviness since last night found to have significant delta troponin 2 hours along with tachycardia. Chest discomfort/elevated troponins: Patient does not have any significant postnasal risk factors. Is a non-smoker, does not have diabetes does have elevated BMI and significant family history. Cannot rule out myocarditis given exposure to children who are having runny nose and fever currently. CTA done in the ER negative for any pulmonary embolism. Check A1c, lipid panel, MIKE screen, ESR, CRP, respiratory viral panel, flu swab. Aspirin 81 mg daily. Hold off on full dose Lovenox for now. Did receive full dose Lovenox 1 dose in ER. Echocardiogram. Cardiology consulted from the ER. Hold off on requesting for stress test still seen by cardiology. NPO after mid night. Will follow up with troponin cycle and if getting elevated will plan for possible lexiscan. Troponin leak could be secondary to a possible SVT at home which converted by time she reached to the hospital. Tachycardia: On review of EKG negative for atrial fibrillation or PSVT. TSH within normal limits. CTA negative for pulmonary embolism. For now start with metoprolol 25 mg twice daily. Normal saline at 50 cc/h. Telemetry monitoring. Shortness of breath: Saturating well on room air. CTANegative for any consolidation or PE. For now hold off on any nebulization of steroids. Continue to monitor. Full code Cardiac diet. Lovenox for DVT prophylaxis. Attestations Medical Necessity Statement*: Admission for more than 2 midnights for management of chest Discomfort/elevated troponin, tachycardia Time Spent in Patient Care: Greater than 35 minutes Coding Level of Care Code Acute Linux Network Administrator for Chg Fwd Diagnoses Elevated troponin R77.8 Tachycardia R00.0 Shortness of breath R06.02 Chest pain R07.9 Morbid obesity E66.01
[2021-12-15 16:14] LABS: D Dimer 0.48 ug/mIFEU (0-0.59); Erythrocyte Sedimentation Rate 22 mm/hr (0-15)
[2021-12-15 16:20] LABS: C Reactive Protein 79.9 mg/L (0.0-4.9); Creatine Phosphokinase 73 U/L (26-192); Iron 17 ug/dL (37-145); Percent Saturation 4.9 % (20-50); Total Iron Binding Capacity 346 mcg/dl; Unsaturated Iron Binding 329 ug/dL (112-347)
[2021-12-15] MEDS: perflutren protein-a microsphr 0.22 mg/mL SDV 3 mL IV (16:28)
--- NOTE | 2021-12-15 17:00 | PC.NURSE ---
from er Received pt from ER via stretcher. pt is alert,orientedx4. denies any chest pain, sob or discomfort. Sinus tach on the monitor. call light provided to pt.
[2021-12-15 17:21] LABS: Bilirubin Urine 1+ (Negative); Blood Urine 2+ (Negative); Glucose Urine UA Norm (Normal); Ketones Urine Negative (Negative); Nitrate Urine Negative (Negative); Protein Urine 1+ (Negative); Urine Appearance Clear (CLEAR); Urine Color Yellow (Yellow); pH Urine 5 (5-7)
[2021-12-15 17:22] LABS: Troponin 5 6HR 105.9 ng/L (0-10)
[2021-12-15 17:22] LABS: Add Urine Microscopic? YES; Leukocyte Esterase Urine Negative (Negative); Urobilinogen Urine 1 mg/dL (Negative)
[2021-12-15 17:23] LABS: Troponin 5 6HR Delta 92.9 ng/L (0-12)
[2021-12-15 17:28] LABS: Amphetamines Screen Urine Negative (Negative); Barbiturates Screen Urine Negative (Negative); Benzodiazepines Screen Urine Negative (Negative); Cocaine Screen Urine Negative (Negative); Opiate Screen Urine Negative (Negative); PCP Screen Urine Negative (Negative); THC Screen Urine Negative (Negative)
--- NOTE | 2021-12-15 17:29 | PC.NURSE ---
PHYSICIAN NOTIFIED OF CRITICAL LAB VALUES 6HR TROPONIN 105.9 AND DELTA 92.9/ NO NEW ORDERS AT THIS TIME
[2021-12-15 17:35] LABS: Bacteria Urine 1+ /hpf; Mucus Urine 1+ /hpf; Other Crystals Urine N /hpf; RBC Urine 0-4 /hpf (0-2); Renal Epithelial Cells Urine N /hpf; Squamous Epithelial Cell Urine 0-4 /hpf (0-5); Uric Acid Crystals Urine N /hpf; WBC Urine 0-4 /hpf (0-5)
[2021-12-15 17:36] LABS: Add Urine Culture? No; Amorphous Sediment Urine TRACE /hpf; Hyaline Casts Urine 0-4 /lpf; Other Casts Urine N /lpf; Other Sediment, Urine N
[2021-12-15] MEDS: pantoprazole 40 mg SDV IVP (18:25)
[2021-12-15] MEDS: ferrous gluconate 324 mg Tablet PO (18:27)
[2021-12-15] MEDS: D5-NS 0.45% + KCL 20 mEq 20 MEQ/1,000 ML BAG 50 MEQ IV (18:34)
[2021-12-15 18:38] LABS: Phosphorus 2.6 mg/dL (2.5-4.5)
[2021-12-15 18:46] LABS: Adenovirus Not Detected (NOT DETECT); Chlamydia Pneumoniae Not Detected (NOT DETECT); Coronavirus 229E,HKU1,NL63,OC4 Not Detected (NOT DETECT); Human Metapneumovirus Not Detected (NOT DETECT); Human Rhinovirus/Enterovirus Not Detected (NOT DETECT); Influenza A Not Detected (NOT DETECT); Influenza A H1 Not Detected (NOT DETECT); Influenza A H1-2009 Not Detected (NOT DETECT); Influenza A H3 Not Detected (NOT DETECT); Influenza B Not Detected (NOT DETECT); Mycoplasma Pneumoniae Not Detected (NOT DETECT); Parainfluenza Virus Type 1 Not Detected (NOT DETECT); Parainfluenza Virus Type 2 Not Detected (NOT DETECT); Parainfluenza Virus Type 3 Not Detected (NOT DETECT); Parainfluenza Virus Type 4 Not Detected (NOT DETECT); Respiratory Syncytial Virus A Not Detected (NOT DETECT); Respiratory Syncytial Virus B Not Detected (NOT DETECT); SARS-COV-2 Not Detected (NOT DETECT)
--- NOTE | 2021-12-15 19:49 | PC.NURSE ---
Per report, day shift nurse states that Dr. Nascimento ordered to have fluids run at 50 ml/hr instead of 100 ml/hr.
[2021-12-16] VITALS (11 sets, daily range): BP systolic 120–153; BP diastolic 64–86; PULSE 66–90; RESP 15–23; TEMP 36.3–37; O2SAT 93–100
[2021-12-16 04:09] LABS: Basophils % 0.3 %; Eosinophils # 0.2 10^3/uL (0.0-0.8); Eosinophils % 2.4 %; Hematocrit 35.8 % (37.0-47.0); Hemoglobin 10.7 g/dL (11.5-15.3); Lymphocytes # 1.2 10^3/uL (0.8-4.8); Lymphocytes % 16.4 %; Mean Corpuscular HGB Conc 29.9 g/dL (30.0-36.0); Mean Corpuscular Hemoglobin 27.9 pg (28.0-34.0); Mean Corpuscular Volume 93.5 fl (81-99); Mean Platelet Volume 9.6 fL (7.4-10.4); Monocytes # 0.4 10^3/uL (0.2-0.9); Monocytes % 5.1 %; Neutrophils # 5.62 10^3/uL (1.8-7.7); Neutrophils % 75.5 %; Nucleated Red Blood Cells % 0 %; Platelet Count 223 10^3/cmm (130-400); Red Blood Count 3.83 10^6/uL (4.1-5.3); Red Cell Distribution Width 15.2 % (12.1-15.1); White Blood Count 7.4 10^3/uL (4.0-10.0)
[2021-12-16 04:30] LABS: Alanine Aminotransferase 18 U/L (0-33); Albumin Level 3.3 g/dL (3.5-5.2); Alkaline Phosphatase 46 IU/L (35-105); Anion Gap 13.6 (5-19); Aspartate Amino Transferase 21 U/L (0-32); Blood Urea Nitrogen 13 mg/dL (6-20); Calcium 8.5 mg/dL (8.5-10.5); Carbon Dioxide 20 mmol/L (22-29); Chloride 109 mmol/L (98-107); Chol HDL Ratio 3.08 mg/dL (0.0-4.40); Cholesterol 117 mg/dL (0-200); Globulin 2.7 g/dL (1.3-4.6); Glomerular Filtration Rate 144.9 mL/min (90-130); Glucose 123 mg/dL (65-115); HDL Cholesterol 38 mg/dL (60-100); LDL Cholesterol Calculated 50 mg/dL (50-129); Osmolality Calculated 289 mOsm/kg (285-295); Potassium 3.6 mmol/L (3.5-5.1); Sodium 139 mmol/L (136-145); Total Bilirubin 0.2 mg/dL (0.15-1.2); Triglycerides 144 mg/dL (0-150); VLDL Cholestrol Calculation 29 mg/dL (0-30)
[2021-12-16 04:46] LABS: Estmated Average Glucose 88; Hemoglobin A1C 4.7 % (4.0-6.0)
--- NOTE | 2021-12-16 07:54 | ECG_ITS ---
[facility] Test Date: 2021-12-17 Pat Name: Ileana Palmer Department: Room: 108 Gender: Female River Guide: Goldie Martines : 1990 Requested By: Matthew Jarvis Order Number: [id number] López MD: George Nascimento M.D. Interpretive Statements NAME OF STUDY: EXERCISE SESTAMIBI STRESS TEST INDICATION: [Chest Pain, ] EXERCISE DATA: The patient was exercised by Tom protocol. Baseline heart rate was 91 beats per minute. Baseline blood pressure was 140/102 millimeters of mercury. Target heart rate was 161 beats per minute. Maximum heart rate achieved was 171, which was 106% of the target heart rate. Maximum blood pressure was 171/92 millimeters of mercury. Total exercise time was 6 minutes. Maximum METs achieved was 7, maximum VO2 was 24.5. The reason for ending the test was completion of the protocol. The patient complained of shortness of breath during the stress test, which then resolved at the end of the test. ELECTROCARDIOGRAM: BASELINE: Showed sinus rhythm, normal axis, no significant ST-T changes at the baseline noted. [] EXERCISE: At the peak exercise level, [] No significant ST-T changes suggestive of ischemia noted. [] RECOVERY: During the recovery period, heart rate dropped appropriately. No significant ST-T changes in the recovery suggestive of ischemia noted. [] CONCLUSION: 1. Exercise capacity is fair. 2. Heart rate response was appropriate. 3. Blood pressure response was appropriate. 4. Symptoms not suggestive of ischemia. 5. Electrocardiogram portion of the stress test was not suggestive of ischemia. Electronically Signed On 01-05-2022 7:39:30 CDT by George Nascimento M.D. [email or web address]
[2021-12-16] MEDS: ferrous gluconate 324 mg Tablet PO ×2 (08:46→17:48)
[2021-12-16] MEDS: aspirin 81 mg EC Tablet PO (08:46)
[2021-12-16] MEDS: metoprolol tartrate 25 mg Tablet PO ×2 (08:47→18:52)
--- NOTE | 2021-12-16 09:22 | PC.CHAP ---
Pastoral Care Encounter/Spiritual Assessment Type of Contact [] Declined solutions manager visit [] Patient/Family/Request visit [] Outpatient visit [] Follow-up visit [] Physician referral [] Code/Alert [x] Routine visit [] Staff referral [] Actively dying [] Patient sleeping [x] Family support [] [] Out of room [] Palliative care [] [] Receiving care in room [] Pre-surgical visit [] Trauma [] Long length of stay [] ICU visit [] Other: Relational/Emotional Strength [] Patient feels connected with others/family/visitors/staff [] Distress [] Loneliness/isolation [] Abandonment Spirituality of Patient [] Person of Linda [] Attends Jewish of their Linda [] Believes in Prayer [] Reads Bible or Confucianist materials [] There are Spiritual issues to be addressed Telephone Collector Interventions [x] Prayer [x] Active listening [x] Non-anxious presence [x] Spiritual/emotional support [] Crisis/trauma care [] Spiritual counseling [] Bereavement support [] Provided bereavement packet [] Provided Bible/devotional materials [] Provided toy/stuffed animal, coloring book to patient or family member [] Provided Communion [] Anointing/[place] [] Salvation [x] Completed spiritual assessment [] Other: Impact on Illness or Injury [] Angry [] Fearful [] Anxious [] Often cries [] Exhaustion [] Unable to work [] Unable to attend advent [] Unable to walk/stand [] Unable to read [] Unable to drive [] Unable to eat/drink [] Unable to sleep [] Unable to be with family [] Patient intubated [] Other: Summary 3 small children at home little anxious being away from them... meredith stayed over night Time spent with patient 10 min
--- NOTE | 2021-12-16 12:30 | PM.PN ---
Subjective Subjective: Patient is doing well. No more chest pain symptoms. Vitals/I&O/Wt Last Vital Signs Temp 97.3 F L 12/16/21 11:53 Pulse 89 12/16/21 11:53 Resp 19 H 12/16/21 11:53 BP 134/82 12/16/21 11:53 Pulse Ox 99 12/16/21 11:53 12/15/21 12/16/21 12/16/21 22:59 06:59 14:59 Intake Total 999 Balance 999 Weight last 48 hrs Weight 255 lb 9.6 oz Weight 245 lb Physical Exam Narrative: GENERAL: Patient is alert, awake and oriented x3. [] NECK: No jugular vein distension. [] HEENT: No cyanosis. No icterus. No pallor. [] HEART: Regular S1 and S2. No murmur, rub or gallop. [] LUNGS: Clear to auscultate bilaterally. [] ABDOMEN: Soft, nontender and nondistended. Positive bowel sounds. No guarding, rebound or tenderness. [] CENTRAL NERVOUS SYSTEM: Grossly nonfocal. [] EXTREMITIES: Lower extremities with no edema bilaterally. Pulses palpable in the lower extremities, both dorsalis pedis and posterior tibial. [] Data : 12/16/21 03:46 12/16/21 03:46 Micro: Microbiology 12/15/21 12:50 Blood Culture - Preliminary Blood SPECIMEN COLLECTED 12/15/21 10:21 Blood Culture - Preliminary Blood SPECIMEN COLLECTED A&P Assessment and plan (1) Chest pain: Status: Acute (2) Shortness of breath: Status: Acute (3) Tachycardia: Status: Acute (4) Elevated troponin: Status: Acute Plan Patient had episodes of chest pain, palpitations and shortness of breath. Troponins increased significantly. However chest pain is atypical. EKG does not show any ischemic changes. CTA does not reveal pulmonary embolism. Differentials at this time include SVT vsmyocarditis vs ischemia No arrhythmias overnight. Continue aspirin Echo shows normal LV systolic function. Troponins downtrending Plan for stress test Thank you for involving us with care of this patient. We will continue to follow. Please call with questions. Attestations Medical Necessity Statement*: Care expected to cross 2 midnights. Coding Level of Care Code Acute Pressed Or Blown Glass Worker for [facility] Diagnoses Chest pain R07.9 Shortness of breath R06.02 Tachycardia R00.0 Elevated troponin R77.8
[2021-12-16] MEDS: enoxaparin 40 mg/0.4 mL Syringe SUBCUT (15:46)
--- NOTE | 2021-12-16 16:31 | PM.PN ---
Subjective Subjective: Overnight. Patient denies having any further complaints. Denies any nausea vomiting, headache. Family at bedside. We discussed the need of possible stress test given significant elevation in delta troponin. We also discussed that it is most likely secondary to type II NC from tachycardia possibly SVT. Patient, has verbalized understanding and is agreeable to stay for the test tomorrow. Vitals/I&O/Wt Last Vital Signs Temp 98.0 F 12/16/21 15:05 Pulse 78 12/16/21 15:05 Resp 21 H 12/16/21 15:05 BP 142/86 12/16/21 15:05 Pulse Ox 99 12/16/21 15:05 12/16/21 12/16/21 12/16/21 06:59 14:59 22:59 Intake Total 1000 / 1000 Balance 1000 / 1000 Weight last 48 hrs Weight 115.938 kg Weight 111.13 kg Physical Exam Narrative: General: No acute distress, AO x3 HEENT: PERRLA, pupils bilaterally equal and reactive Chest: Normal vesicular breath sounds, no added sounds, equal good air entry bilaterally CVS: S1-S2 regular, no murmurs, no tachycardia, no gallops, no rubs Abdomen: Soft, nontender, no organomegaly, bowel sounds present Neuro: No focal deficits, no facial deformity, AO x3, power 5/5 in all limbs Data : 12/16/21 03:46 12/16/21 03:46 Micro: Microbiology 12/15/21 12:50 Blood Culture - Preliminary Blood NEGATIVE TO DATE 12/15/21 10:21 Blood Culture - Preliminary Blood NEGATIVE TO DATE A&P Assessment and plan (1) Elevated troponin: Status: Acute (2) Tachycardia: Status: Acute (3) Shortness of breath: Status: Acute (4) Chest pain: Status: Acute (5) Morbid obesity: Status: Acute Plan 31-year-old female with no significant past medical history other than preeclampsia with significant family history of early CAD in mother with NC at age 40, CVA and DVT in mother presented to the ER complaining of shortness of breath, chest heaviness since last night found to have significant delta troponin 2 hours along with tachycardia. Chest discomfort/elevated troponins: Patient does not have any significant risk factors. Is a non-smoker, does not have diabetes does have elevated BMI and significant family history. Cannot rule out myocarditis given exposure to children who are having runny nose and fever currently. CTA done in the ER negative for any pulmonary embolism. A1c 4.7, lipid panel within normal limits. MIKE screen pending, ESR, CRP slightly elevated with ESR of 22 and CRP of 80. Respiratory viral panel negative. Continue aspirin 81 mg daily, continue to hold off on full dose Lovenox. Start on atorvastatin 20 mg daily. Echocardiogram done shows an EF 55 to 60% without regional abnormality, mild TR, RVSP of 35-40 consistent mild pulmonary hypertension. NPO after midnight for exercise stress test tomorrow morning. Tachycardia: On review of EKG negative for atrial fibrillation or PSVT. TSH within normal limits. CTA negative for pulmonary embolism. Continue with metoprolol 25 mg twice daily. Telemetry monitoring. Shortness of breath: Saturating well on room air. CTANegative for any consolidation or PE. For now hold off on any nebulization of steroids. Continue to monitor. Full code Cardiac diet. Lovenox for DVT prophylaxis. Attestations Medical Necessity Statement*: Requires further hospitalization for further evaluation and management of unstable angina with significant delta troponin most likely secondary to type II NC from tachycardia Time Spent in Patient Care: Greater than 35 minutes Coding Level of Care Code Acute Computer Processing Scheduler for Chg Fwd Diagnoses Elevated troponin R77.8 Tachycardia R00.0 Shortness of breath R06.02 Chest pain R07.9 Morbid obesity E66.01
--- NOTE | 2021-12-16 17:45 | PC.NURSE ---
Patient's left to get something else for the patient to eat.
[2021-12-16] MEDS: pantoprazole 40 mg SDV IVP (17:49)
--- NOTE | 2021-12-16 19:31 | PC.NURSE ---
pt stated that she has had a minor bloody nose daily,for about [address] juarez notified.he ordered an inr with a.m. labs
[2021-12-17 03:24] VITALS: BP 121/75; PULSE 77; RESP 18; O2SAT 96
[2021-12-17 03:55] VITALS: PULSE 67
[2021-12-17 05:38] LABS: INR 1.05 (0.8-1.2)
--- NOTE | 2021-12-17 07:54 | NMCV_ITS ---
NM manuel perf SPECT r/s* [id number] Ileana Palmer Age: 31 Gender: F : 1990 Exam Date: 12/17/2021 07:03 Ordering Phys: Matthew Jarvis MD Technologist: IMELDA Valdivia Exam Location: [facility] Indications: CHEST PAIN STRESS TEST [facility] IMAGE PROTOCOL Rest/Stress 1 Radiopharmaceutical Dose (mCi) Administration Site Administered by Rest: Tc-99m 10.7 IV IMELDA Farah Sestamibi Stress:Tc-99m 32.9 IV IMELDA Farah Sestamibi Rest: 17-Dec-2021 60 Discovery 630 Stress: 17-Dec-2021 30 Discovery 630 Radiopharmaceutical was injected at 90 % maximum heart rate. Images obtained in supine and prone position. SPECT RESULTS Technical Quality: Excellent Raw Data Analysis: Normal Image Corrections: No attenuation or motion correction applied Summed Stress Score: 4 Summed Rest Score: 5 Summed Difference Score: 2 PERFUSION FINDINGS Moderate area of slightly decreased tracer uptake in the basal, mid and apical inferior and mid anterior wall regions. Subtle areas of reversibility was noted at the base and the anterior region, with the supine imaging. However with the prone imaging, no significant reversibility was noted. FUNCTIONAL RESULTS (calculated via Gated SPECT) Stress Image LV EF (%): 71 Stress EDV (mL):129 TID: 0.83 Stress ESV (mL):38 FUNCTIONAL FINDINGS: Segmental wall motion analysis revealing no gross wall motion abnormalities IMPRESSIONS 1. Myocardial perfusion imaging revealing moderate area of slightly decreased tracer uptake in the inferior wall and anterior wall regions with a subtle areas of reversibility, suggesting myocardial scarring with possible charly- infarction ischemia in the distribution of the left and descending artery and right coronary artery. However because of the inconsistency, the reliability is very low. 2. Normal LV ejection fraction 71%. 3. LV wall motion analysis revealing no gross wall motion normalities. 4. Normal LV volume. Clinical correlation is recommended Dr Lynnette Macedo MD [facility] (Electronically Signed) Final Date: 17 December 2021 12:53 S
[2021-12-17 07:55] VITALS: BP 155/96; PULSE 96
[2021-12-17] MEDS: aspirin 81 mg EC Tablet PO (09:13)
[2021-12-17] MEDS: ferrous gluconate 324 mg Tablet PO (09:13)
[2021-12-17] MEDS: metoprolol tartrate 25 mg Tablet PO (09:13)
[2021-12-17 09:32] VITALS: BP 148/109; PULSE 82; RESP 21; TEMP 36.7; O2SAT 99
--- NOTE | 2021-12-17 09:51 | PM.PN ---
Subjective Subjective: Patient is doing well. no complaints of chest pain. Stress test did not show significant ischemia, mostly fixed defect in LAD and RCA territory was noted but artifact is strong possibility Vitals/I&O/Wt Last Vital Signs Temp 98.1 F 12/17/21 09:32 Pulse 82 12/17/21 09:32 Resp 21 H 12/17/21 09:32 BP 148/109 12/17/21 09:32 Pulse Ox 99 12/17/21 09:32 12/16/21 12/17/21 12/17/21 22:59 06:59 14:59 Intake Total 120 / 120 Balance 120 / 120 Weight last 48 hrs Weight 258 lb 11.2 oz Weight 255 lb 9.6 oz Weight 245 lb Physical Exam Narrative: GENERAL: Patient is alert, awake and oriented x3. [] NECK: No jugular vein distension. [] HEENT: No cyanosis. No icterus. No pallor. [] HEART: Regular S1 and S2. No murmur, rub or gallop. [] LUNGS: Clear to auscultate bilaterally. [] ABDOMEN: Soft, nontender and nondistended. Positive bowel sounds. No guarding, rebound or tenderness. [] CENTRAL NERVOUS SYSTEM: Grossly nonfocal. [] EXTREMITIES: Lower extremities with no edema bilaterally. Pulses palpable in the lower extremities, both dorsalis pedis and posterior tibial. [] Data : 12/16/21 03:46 12/16/21 03:46 Micro: Microbiology 12/15/21 12:50 Blood Culture - Preliminary Blood NEGATIVE TO DATE 12/15/21 10:21 Blood Culture - Preliminary Blood NEGATIVE TO DATE A&P Assessment and plan (1) Chest pain: Status: Resolved (2) Shortness of breath: Status: Resolved (3) Tachycardia: Status: Acute (4) Elevated troponin: Status: Acute Plan Patient had episodes of chest pain, palpitations and shortness of breath. Troponins increased significantly. However chest pain is atypical. EKG does not show any ischemic changes. CTA does not reveal pulmonary embolism. Differentials at this time include SVT vs myocarditis. Outpatient event monitor No arrhythmias in the hospital Continue aspirin Echo shows normal LV systolic function. Troponins downtrending Stress test did not show significant ischemia. Medical therapy for now Thank you for involving us with care of this patient. Patient is stable to be discharged. Can plan outpatient event monitor. Please call with questions. Attestations Medical Necessity Statement*: Care expected to cross 2 midnights Coding Level of Care Code Acute [employer] Psychiatrist for Ceceliag Fwd Diagnoses Chest pain R07.9 Shortness of breath R06.02 Tachycardia R00.0 Elevated troponin R77.8
[2021-12-17 11:15] VITALS: BP 129/85; PULSE 71; RESP 23; O2SAT 99
--- NOTE | 2021-12-17 12:14 | PM.DCS ---
Discharge Providers Date of Admission: 12/15/21 17:45 Date of Discharge: December 17, 2021 Attending Provider at Admission: Matthew Jarvis MD Attending Provider at Discharge: Matthew Jarvis MD Primary Care Provider: Carloz Flores MD Diagnoses at Discharge Discharge Diagnosis (1) Chest pain: Status: Acute (2) Shortness of breath: Status: Acute (3) Tachycardia: Status: Acute (4) Elevated troponin: Status: Acute Reason for Visit Reason for Visit: SOB, High Heart Rate Hospital Course Hospital Course Ileana Palmer is a 31 year old female with no segment past medical history other than preeclampsia during presented to the ER today complaining of chest pressure in the retrosternal region since last night associated with shortness of breath and deep shallow breathing.? Patient states she was laying comfortably in bed last night when she started having the symptoms.? As these symptoms continued today morning so she presented to the ER.? Patient denies of having any similar complaints in the past.? States usually she can walk up to a mile without having any similar complaints.? Is a lifetime non-smoker.? Denies any recent or current runny nose, fever or viral symptoms.? Does give history of viral prodrome and fever in children at home currently.? Does give significant family history of CAD and DVT with stroke in mother.? Mother had first TN at age 40. Denies any current medications other than Zyrtec and Flonase.? Denies any changes in medications recently. Blood work in the ER showed a white count 16,000, hemoglobin of 12.9, sodium 137, potassium 4.1, creatinine 0.6, initial lactate 2.3 coming down to 1.2, AST/ALT of 23/13,-phosphatase of 44, baseline troponin of 13 with delta troponin of 151 [address] done in the ER as below. Essential to the hospital further evaluation and management of chest discomfort along with tachycardia. Patient was admitted to cardiac stepdown unit, cardiology was consulted. Patient did not have any further episodes of tachycardia while hospitalized. Because of significant elevation of troponin she underwent cardiac stress test on 12/17 which was resulted as below. Echocardiogram was done which showed normal EF without regional wall wall motion abnormality. It is believed that her symptoms are secondary to tachycardia and stress test is false positive secondary to attenuation of defect as per cardiology. She has been discharged hemodynamic stable condition on beta-michael with metoprolol 25 mg twice daily and an event monitor. She is advised to follow-up with cardiology within next 1 month. Plan was discussed in detail with the patient and she is agreeable. Physical Exam Narrative: General: No acute distress, AO x3 HEENT: PERRLA, pupils bilaterally equal and reactive Chest: Normal vesicular breath sounds, no added sounds, equal good air entry bilaterally CVS: S1-S2 regular, no murmurs, no tachycardia, no gallops, no rubs Abdomen: Soft, nontender, no organomegaly, bowel sounds present Neuro: No focal deficits, no facial deformity, AO x3, power 5/5 in all limbs Discharge Data Studies Completed and Pending Completed Studies During Hospitalization Category Date Time Status CT angio chest PE protcl [id number] Stat Cat Scan 12/15/21 11:50 Completed Sestamibi Stress Test Request Routine Exams 12/16/21 07:54 Draft XR chest 1V portable [id number] Stat Exams 12/15/21 10:19 Completed CV. echo wo/w contrast [id number] Routine Ultrasound 12/15/21 15:39 Completed Pending at discharge Category Date Time Status Blood Culture Stat Lab 12/15/21 12:50 Results [facility] MIKE Profile Routine Lab 12/15/21 16:52 Received NM manuel perf SPECT r/s* [id number] Routine Nuc Med 12/17/21 07:54 Taken Radiology Impressions Chest X-Ray 12/15/21 10:19 IMPRESSION: Unremarkable chest radiograph. Chest CTA 12/15/21 11:50 IMPRESSION: 1. Proximal main pulmonary arteries are normal. No evidence of pulmonary embolus. 2. Slight hazy groundglass opacities in the LEFT greater than RIGHT upper lobes likely infectious or inflammatory. No focal pneumonia or pleural fluid. 3. No other significant findings. Cardiac stress test: IMPRESSIONS ?1. Myocardial perfusion imaging revealing moderate area of slightly decreased?tracer uptake in the inferior wall and anterior wall regions with a subtle?areas of? reversibility, suggesting myocardial scarring with possible charly-?infarction ischemia in the distribution of the left and descending artery and?right coronary artery.? However because of the inconsistency, the reliability?is very low. ?2.? Normal LV ejection fraction 71%. ?3.? LV wall motion analysis revealing no gross wall motion normalities. ?4.? Normal LV volume. ?Clinical correlation is recommended ?Dr Lynnette Macedo MD [facility] ?(Electronically Signed) ?Final Date:? ? ? 17 December 2021 ? 12:53 Echocardiogram: ?CONCLUSIONS ?LV systolic function is normal with EF of 55-60% ?Normal diastolic function ?Right ventricle is mildly dilated ?Mild tricuspid regurgitation. Mild pulmonary hypertension ?No comparison studies are available ?George Nascimento MD ?(Electronically Signed) ?Final Date:? ? ? 15 December 2021 ? 17:31 Laboratory Results WBC 7.4 10^3/uL (4.0-10.0) 12/16/21 03:46 RBC 3.83 10^6/uL (4.1-5.3) L 12/16/21 03:46 Hgb 10.7 g/dL (11.5-15.3) L 12/16/21 03:46 Hct 35.8 % (37.0-47.0) L 12/16/21 03:46 MCV 93.5 fl (81-99) D 12/16/21 03:46 MCH 27.9 pg (28.0-34.0) L 12/16/21 03:46 MCHC 29.9 g/dL (30.0-36.0) L D 12/16/21 03:46 RDW 15.2 % (12.1-15.1) H 12/16/21 03:46 Plt Count 223 10^3/cmm (130-400) 12/16/21 03:46 MPV 9.6 fL (7.4-10.4) 12/16/21 03:46 Neut % (Auto) 75.5 % 12/16/21 03:46 Lymph % (Auto) 16.4 % 12/16/21 03:46 [place] % (Auto) 5.1 % 12/16/21 03:46 Eos % (Auto) 2.4 % 12/16/21 03:46 Baso % (Auto) 0.3 % 12/16/21 03:46 Neut # (Auto) 5.62 10^3/uL (1.8-7.7) 12/16/21 03:46 Lymph # (Auto) 1.2 10^3/uL (0.8-4.8) 04/20/22 03:46 [place] # (Auto) 0.4 10^3/uL (0.2-0.9) 12/16/21 03:46 Eos # (Auto) 0.2 10^3/uL (0.0-0.8) 12/16/21 03:46 Baso # (Auto) 0.0 10^3/uL (0.0-0.1) 12/16/21 03:46 Nucleated RBC % (auto) 0 % 12/16/21 03:46 Nucleated RBCs # 0.0 /100WBC 12/16/21 03:46 ESR 22 mm/hr (0-15) H 12/15/21 10:21 PT 14.00 SECONDS (12.1-14.9) 12/17/21 05:08 INR 1.05 (0.8-1.2) 12/17/21 05:08 D-Dimer 0.48 ug/mIFEU (0-0.59) 12/15/21 10:21 Sodium 139 mmol/L (136-145) 12/16/21 03:46 Potassium 3.6 mmol/L (3.5-5.1) 12/16/21 03:46 Chloride 109 mmol/L (98-107) H 12/16/21 03:46 Carbon Dioxide 20 mmol/L (22-29) L 12/16/21 03:46 Anion Gap 13.6 (5-19) 12/16/21 03:46 BUN 13 mg/dL (6-20) 12/16/21 03:46 Creatinine 0.5 mg/dL (0.5-0.9) 12/16/21 03:46 GFR Calculation 144.9 mL/min (90-130) H 12/16/21 03:46 Glucose 123 mg/dL (65-115) H 12/16/21 03:46 Estimat Average Glucose 88 12/16/21 03:46 Hemoglobin A1c 4.7 % (4.0-6.0) 12/16/21 03:46 Calculated Osmolality 289 mOsm/kg (285-295) 12/16/21 03:46 Lactic Acid 2.3 mmol/L (0.5-2.2) H 12/15/21 10:21 Lactic Acid (Sepsis) 1.2 mmol/L (0.5-2.2) 12/15/21 12:50 Calcium 8.5 mg/dL (8.5-10.5) 12/16/21 03:46 Phosphorus 2.6 mg/dL (2.5-4.5) 12/15/21 13:44 Magnesium Cancelled 12/15/21 13:44 Iron 17 ug/dL (37-145) L 12/15/21 13:44 TIBC 346 mcg/dl 12/15/21 13:44 % Saturation 4.9 % (20-50) L 12/15/21 13:44 Unsat Iron Binding 329 ug/dL (112-347) 12/15/21 13:44 Total Bilirubin 0.2 mg/dL (0.15-1.2) 12/16/21 03:46 AST 21 U/L (0-32) 12/16/21 03:46 ALT 18 U/L (0-33) 12/16/21 03:46 Alkaline Phosphatase 46 IU/L (35-105) 12/16/21 03:46 Creatine Kinase 73 U/L (26-192) 12/15/21 13:44 Troponin T Gen 5 ng/L 151 ng/L (0-10) H* 12/15/21 13:44 Troponin T Baseline 13 ng/L (0-10) H 12/15/21 10:21 Troponin T 120 Minute 169.3 ng/L (0-10) H 12/15/21 12:42 Delta Troponin T 156.3 ABS# (0-10) H* 12/15/21 12:42 Troponin T Hi Sens 6Hr 105.9 ng/L (0-10) H 12/15/21 16:52 Troponin T Hi Sens 6Hr Delta 92.9 ng/L (0-12) H* 12/15/21 16:52 C-Reactive Protein 79.9 mg/L (0.0-4.9) H 12/15/21 13:44 Total Protein 6.0 g/dL (6.6-8.7) L 12/16/21 03:46 Albumin 3.3 g/dL (3.5-5.2) L 12/16/21 03:46 Globulin 2.7 g/dL (1.3-4.6) 12/16/21 03:46 Triglycerides 144 mg/dL (0-150) 12/16/21 03:46 Cholesterol 117 mg/dL (0-200) 12/16/21 03:46 LDL Cholesterol, Calc 50 mg/dL (50-129) 12/16/21 03:46 Total VLDL Cholesterol 29 mg/dL (0-30) 12/16/21 03:46 HDL Cholesterol 38 mg/dL (60-100) L 12/16/21 03:46 Cholesterol/HDL Ratio 3.08 mg/dL (0.0-4.40) 12/16/21 03:46 Lipase 32 U/L (13-60) 12/15/21 10:21 TSH 2.93 uIU/mL (0.27-4.20) 12/15/21 10:21 HCG, Qual Negative (Negative) 12/15/21 10:21 Urine Color Yellow (Yellow) 12/15/21 16:39 Urine Appearance Clear (CLEAR) 12/15/21 16:39 Urine pH 5 (5-7) 12/15/21 16:39 Ur Specific [place] 1.010 (1.005-1.030) 12/15/21 16:39 Urine Protein 1+ (Negative) H 12/15/21 16:39 Urine Glucose (UA) Norm (Normal) 12/15/21 16:39 Urine Ketones Negative (Negative) 12/15/21 16:39 Urine Blood 2+ (Negative) H 12/15/21 16:39 Urine Nitrate Negative (Negative) 12/15/21 16:39 Urine Bilirubin 1+ (Negative) H 12/15/21 16:39 Urine Urobilinogen 1 mg/dL (Negative) H 12/15/21 16:39 Ur Leukocyte Esterase Negative (Negative) 12/15/21 16:39 Urine RBC 0-4 /hpf (0-2) H 12/15/21 16:39 Urine WBC 0-4 /hpf (0-5) H 12/15/21 16:39 Ur Squamous Epith Cells 0-4 /hpf (0-5) H 12/15/21 16:39 Ur Transition Epith Cell None /hpf 12/15/21 16:39 Ur Renal Epithelial Cell N /hpf 12/15/21 16:39 Calcium Oxalate Crystal None /hpf 12/15/21 16:39 Uric Acid Crystals N /hpf 12/15/21 16:39 Triple Phos Crystals None /hpf 12/15/21 16:39 Other Crystals N /hpf 12/15/21 16:39 Amorphous Sediment Trace /hpf 12/15/21 16:39 Urine Bacteria 1+ /hpf (NONE) H 12/15/21 16:39 Hyaline Casts 0-4 /lpf H 12/15/21 16:39 Fine Granular Casts None /lpf 12/15/21 16:39 Coarse Granular Casts None /lpf 12/15/21 16:39 RBC Casts None /lpf 12/15/21 16:39 Other Casts N /lpf 12/15/21 16:39 Urine Mucus 1+ /hpf 12/15/21 16:39 Urine Trichomonas None /hpf 12/15/21 16:39 Urine Yeast None /hpf 12/15/21 16:39 Urine Sperm None /hpf 12/15/21 16:39 Ur Oval Fat Bodies None /hpf 12/15/21 16:39 Nasal Influ A H1 2009 PCR Not detected (NOT DETECT) 12/15/21 16:59 Urine Opiates Screen Negative ng/mL (Negative) 12/15/21 16:39 Ur Barbiturates Screen Negative ng/mL (Negative) 12/15/21 16:39 Ur Phencyclidine Scrn Negative ng/mL (Negative) 12/15/21 16:39 Ur Amphetamines Screen Negative ng/mL (Negative) 12/15/21 16:39 U Benzodiazepines Scrn Negative ng/mL (Negative) 12/15/21 16:39 Urine Cocaine Screen Negative ng/mL (Negative) 12/15/21 16:39 U Marijuana (THC) Screen Negative ng/mL (Negative) 12/15/21 16:39 Adenovirus (PCR) Not detected (NOT DETECT) 12/15/21 16:59 C. pneumoniae DNA (PCR) Not detected (NOT DETECT) 12/15/21 16:59 Coronavirus 229E (PCR) Not detected (NOT DETECT) 12/15/21 16:59 Human Metapneumovir PCR Not detected (NOT DETECT) 12/15/21 16:59 Influenza A (H1) PCR Not detected (NOT DETECT) 12/15/21 16:59 Influenza A (H3) PCR Not detected (NOT DETECT) 12/15/21 16:59 Influenza Type A (PCR) Not detected (NOT DETECT) 12/15/21 16:59 Influenza Type B (PCR) Not detected (NOT DETECT) 12/15/21 16:59 M. pneumoniae (PCR) Not detected (NOT DETECT) 12/15/21 16:59 Parainfluenza 1 (PCR) Not detected (NOT DETECT) 12/15/21 16:59 Parainfluenza 2 (PCR) Not detected (NOT DETECT) 12/15/21 16:59 Parainfluenza 3 (PCR) Not detected (NOT DETECT) 12/15/21 16:59 Parainfluenza 4 (PCR) Not detected (NOT DETECT) 12/15/21 16:59 RSV Type A (PCR) Not detected (NOT DETECT) 12/15/21 16:59 RSV Type B (PCR) Not detected (NOT DETECT) 12/15/21 16:59 Entero/Rhino (PCR) Not detected (NOT DETECT) 12/15/21 16:59 SARS-CoV-2 (PCR) Not detected (NOT DETECT) 12/15/21 16:59 Vitals Last Vital Signs Temp 98.1 F 12/17/21 09:32 Pulse 71 12/17/21 11:15 Resp 23 H 12/17/21 11:15 BP 129/85 12/17/21 11:15 Pulse Ox 99 12/17/21 11:15 Discharge Plan Discharge Patient Disposition: Home Condition: Stable Prescriptions: New ferrous gluconate 324 mg (37.5 mg iron) Tablet 324 mg PO BIDWM Qty: 60 0RF aspirin 81 mg Tablet,Delayed Release (Dr/Ec) 81 mg PO DAILY Qty: 30 0RF metoprolol tartrate 25 mg Tablet 25 mg PO BID@0900,2100 Qty: 60 0RF Continued Zyrtec 10 mg Tablet 10 mg PO DAILY 0RF fluticasone propionate 50 mcg/actuation [place],Suspension 1 spray INTRANASAL DAILY 0RF Rx Instructions: administer into each nostril Multivitamins 28 mg iron- 800 mcg Tablet 2 tab PO DAILY 0RF Discharge Orders: Discharge Order (Routine); Ordered 12/17/21 Ordered By: Matthew Jarvis Other Ambulatory Orders: MCT/Event Monitor 21 Days (Routine) Timeframe: 1 Week Facility: [facility] - Location: Radiology Ordered By: Matthew Jarvis Referrals: George Nascimento M.D [Physician] - 01/01/22 10:45 am (You have a cardiology followup with Dr. Nascimento on January 01 at 10:45am) Carloz Flores MD [Primary Care Provider] - 12/23/21 11:45 am (You have a hospital followup with Dr. Flores on December 23 at 11:45am) Discharge Diet: Advance as tolerated and Usual diet Discharge Activity: Resume usual activity and Increase activity as tolerated Patient Instructions: Iron Supplements (By mouth), Metoprolol (By mouth), Aspirin (By mouth), Noncardiac Chest Pain (DC), Opioid Safety Activity Restrictions/Additional Instructions: Please follow-up with a primary care provider within next 1 week. You should have repeat of ESR and CRP within next 6 months. As discussed in detail placed try the lifestyle modification. You should exercise/walk at a pace when you are able to talk on phone but not having improvement for at least 45 minutes 4 out of 7 days a week. Please try and lose 10 to 15 pounds of weight. Low-salt low-fat diet. You will be on metoprolol which is a medication to control your heart rate twice daily. Please follow-up with cardiology within next 1 month for further evaluation and management after your event monitor. [facility] will be mailing a 21 Day Event Monitor to you at home. There are detailed instructions to getting it going. Stand Alone Forms: Work/School Release Discharge Attestations Time Spent in Discharge Care*: greater than 30 min Specific Discharge Activities: educating patient, educating and/or supporting family/caregiver, discussing with pcp/other providers, discussing with case management assistant/social workers/dc planners, documenting/other paperwork and evaluating patient/reviewing data Status at Discharge: Cognitive status at discharge: cognitively intact, Behavioral status at discharge: cooperative, Functional status at discharge: independent ambulation, Overall status at discharge: patient is back to baseline Quality Metrics Clinical Quality Measures [ No reported AMI, CVA or VTE this stay] Coding Level of Care Code Acute Chg FW DC note Diagnoses Chest pain R07.9 Shortness of breath R06.02 Tachycardia R00.0 Elevated troponin R77.8
[2021-12-18 11:33] LABS: Anti-Double Strand DNA AB <1 IU/mL; Jo-1 Antibody <1.0 NEG AI (<1.0 NEG); SM/RNP Antibodies <1.0 NEG AI (<1.0 NEG); SS-B/LA IGG <1.0 NEG AI (<1.0 NEG); Scleroderma Ab(Scl-70) Ab <1.0 NEG AI (<1.0 NEG); Ss-A/Ro Igg <1.0 NEG AI (<1.0 NEG)
== END 2021-12-17 13:48 | disposition home or self-care (01) ==
LOC: ER 15:31 → CSU 17:04
PROVIDERS: Admitting Provider Student in an Organized Health Care Education/Training Program; Emergency Provider Family Medicine; PCP Family Medicine; Visit Provider Student in an Organized Health Care Education/Training Program
DX: R07.89 Other chest pain (principal); R06.02 Shortness of breath; R00.0 Tachycardia, unspecified; R77.8 Other specified abnormalities of plasma proteins; E66.01 Morbid (severe) obesity due to excess calories; Z68.42 Body mass index [BMI] 45.0-49.9, adult; Z82.49 Family history of ischemic heart disease and other diseases of the circulatory system
CPT/HCPCS: 36415; 71045; 71275; 78452; 80053; 80061; 80306; 81001; 82550; 83036; 83540; 83550; 83605; 83690; 83735; 84100; 84443; 84484; 84703; 85025; 85378; 85610; 85651; 86140; 86225; 86235; 87040; 87486; 87581; 87633; 93005; 93017; 94664; 96361; 96365; 96366; 96367; 96372; 96374; 96375; 99285; A9500; C8929; C9113; G0378; J1650; J3490; J7030; Q9956; Q9967

== ENCOUNTER 2022-03-22 22:10 | Emergency (ER) | payer BC, SELFPAY ==
[2022-03-22 22:17] VITALS: PULSE 118; RESP 14; O2SAT 97; BMI 44.2
[2022-03-22 22:21] VITALS: BP 170/104; PULSE 117; RESP 18; O2SAT 100
--- NOTE | 2022-03-22 22:25 | W.ED.ALLEREA ---
HPI - Allergic Reaction General: Chief complaint: Allergic Reaction Stated complaint: Allergic Reaction Time Seen by Provider: 03/22/22 22:22 History of Present Illness: HPI narrative: 32-year-old female comes in today after being stung by a bee at approximately 845 this evening. Patient started having some hives and a raspy voice with no relief from Benadryl. Patient does report a history of reactions to bee stings when she was a child but has not had a reaction in many years so has not been carrying EpiPen's. Patient appears nontoxic. Patient appears in no acute distress. Review of Systems General: Reports: 10 or more systems reviewed and unremarkable except in HPI and below Resp: Reports: dyspnea Skin/Breast: Reports: rash PFS ED PFSH: Medical History 37 weeks gestation of Morbid obesity Preeclampsia Spontaneous vaginal delivery Family History Other CAD (coronary artery disease) Clotting disorder Social History Smoking and tobacco status: never smoked Alcohol intake: never Caregiver/support person: Yes Lives independently: Yes Household members: family Housing: House Marital status: Physical Exam Const: COMMON NORMALS: alert HENMT: THROAT: posterior oropharynx normal Neck/C-Spine: COMMON NORMALS: full ROM Resp: COMMON NORMALS: normal respiratory effort AUSCULTATION: diminished lung sounds Cardio: COMMON NORMALS: regular rhythm RATE: tachycardic RHYTHM: regular rhythm GI: COMMON NORMALS: Soft to palpation PALPATION: Yes Soft to palpation Extremity: COMMON NORMALS: normal to inspection Neuro: SENSORIUM/ORIENTATION: Yes alert Skin: RASHES: rashes noted (urticaria) Course Vital Signs: Vital signs: Vital Signs Pulse Rate 117 H 03/22/22 22:21 Respiratory Rate 18 03/22/22 22:21 Blood Pressure 170/104 03/22/22 22:21 Pulse Oximetry 100 03/22/22 22:21 MDM - Allergic Reaction Medical Decision Making Patient comes in for a sting from an insect. Patient believes it might of been a yellowjacket. Patient had had allergic reactions before to stings when her youth but has not had one for many years so has not been carrying a epinephrine pen. On exam patient had urticaria generalized. Patient also had a raspy voice. And reported some chest discomfort. Vital signs were normal except for some elevation of blood pressure. Differential diagnosis includes anaphylaxis, local reaction to insect sting, anxiety. Due to patient's urticaria and change in voice she was given 0.3 mg of epinephrine x1. Over 1 to 2 hours patient had resolution of symptoms with significant improvement in rash and clearing of her voice. Patient was given 40 mg of famotidine IV and 1 dose of dexamethasone. I encourage patient to drink plenty of fluids use Zyrtec 1 to 2 tablets twice a day for urticarial rash. I would expect for the rash continue to clear patient may want to use the Zyrtec to help with the itching and swelling at the sting site. Patient reported understanding of care plan need for follow-up or return to the ER. Patient was also written a prescription for an epinephrine pen. Discharge Plan Discharge Patient Disposition: Home Clinical Impression: Bee sting allergy Anaphylaxis Qualifiers: Encounter type: initial encounter Qualified Code(s): T78.2XXA - Anaphylactic shock, unspecified, initial encounter Condition: Stable Prescriptions: New epinephrine 0.3 mg/0.3 mL auto-injector 0.3 mg IM Q10M PRN (Reason: anaphylaxis) Qty: 2 0RF Rx Instructions: for 2 doses No Action Zyrtec 10 mg Tablet 10 mg PO DAILY 0RF fluticasone propionate 50 mcg/actuation [place],Suspension 1 spray INTRANASAL DAILY 0RF Rx Instructions: administer into each nostril Multivitamins 28 mg iron- 800 mcg Tablet 2 tab PO DAILY 0RF ferrous gluconate 324 mg (37.5 mg iron) Tablet 324 mg PO BIDWM Qty: 60 0RF aspirin 81 mg Tablet,Delayed Release (Dr/Ec) 81 mg PO DAILY Qty: 30 0RF metoprolol tartrate 25 mg Tablet 25 mg PO BID@0900,2100 Qty: 60 0RF Discharge Orders: Discharge ED (Routine); Ordered 03/22/22 Ordered By: Martin Yang Referrals: Carloz Flores MD [Primary Care Provider] - Discharge Diet: Usual diet Patient Instructions: Insect Bite or Sting (ED) Activity Restrictions/Additional Instructions: If stung by a bee or wasp again monitor for hives and difficulty with speech or breathing. If the symptoms start give epinephrine. Use Zyrtec 1 or 2 tablets twice a day for rash. Drink plenty of water with medication. Follow-up with primary care for further instructions. Return to ER for worsening symptoms or new concerns. Coding Level of Care Code ED Chief Operator Lock Tender for [facility] Fwmercedez Exam Comprehensive
[2022-03-22] MEDS: EPINEPHrine 1 mg/mL INJ 0.3 MG IM (22:37)
[2022-03-22] MEDS: dexamethasone 10 mg/mL INJ IVP (22:41)
[2022-03-22] MEDS: famotidine 20 mg/2 mL INJ 40 MG IVP (22:42)
[2022-03-23 00:01] VITALS: BP 157/86; PULSE 109; RESP 18; O2SAT 99
== END 2022-03-23 00:02 | disposition home or self-care (01) ==
PROVIDERS: Emergency Provider Nurse Practitioner Family; PCP Family Medicine
DX: T78.2XXA Anaphylactic shock, unspecified, initial encounter (principal); T63.441A Toxic effect of venom of bees, accidental (unintentional), initial encounter; Z79.82 Long term (current) use of aspirin
CPT/HCPCS: 96372; 96374; 96375; 99284; J0171; J1100; J3490

== ENCOUNTER → 2023-09-23 12:39 | Outpatient (BNVA) | payer BC, SELFPAY | PROVIDERS: PCP Family Medicine; Visit Provider Emergency Medicine | DX: B34.9 Viral infection, unspecified (principal) | CPT/HCPCS: 87400; 87420 ==

== ENCOUNTER 2024-07-23 18:15 | Inpatient (IN) | payer BC, MEDICAID, SELFPAY ==
[2024-07-23] VITALS (14 sets, daily range): BP systolic 132–169; BP diastolic 63–91; PULSE 75–96; RESP 16; BMI 47.1
[2024-07-23 13:51] LABS: Basophils % 0.3 %; Eosinophils # 0.1 10^3/uL (0.0-0.8); Eosinophils % 1.1 %; Hematocrit 36.2 % (36-47); Lymphocytes # 1.3 10^3/uL (0.8-4.8); Lymphocytes % 18.3 %; Mean Corpuscular Hemoglobin 28.6 pg (27-33); Mean Corpuscular Volume 89.2 fl (85-98); Mean Platelet Volume 9.5 fL (7.4-10.4); Monocytes # 0.5 10^3/uL (0.2-0.9); Monocytes % 6.3 %; Neutrophils # 5.22 10^3/uL (1.8-7.7); Neutrophils % 73.7 %; Nucleated Red Blood Cells % 0 %; Platelet Count 261 10^3/cmm (157-399); Red Blood Count 4.06 10^6/uL (3.85-5.65); Red Cell Distribution Width 14.9 % (12.1-15.1); White Blood Count 7.09 10^3/uL (3.29-11.43)
[2024-07-23 13:54] LABS: Bilirubin Urine Negative (Negative); Blood Urine 1+ (Negative); Glucose Urine UA Negative (Normal); Ketones Urine 2+ (Negative); Leukocyte Esterase Urine 1+ (Negative); Nitrate Urine Negative (Negative); Protein Urine Trace (Negative); Specific Gravity, Urine 1.015 (1.005-1.030); Urine Appearance Clear (CLEAR); Urine Color Yellow (Yellow)
[2024-07-23 13:56] LABS: Add Urine Microscopic? YES; Bacteria Urine Trace /hpf; Hyaline Casts Urine 2.87 /lpf
[2024-07-23 14:02] LABS: Add Urine Culture? Yes
[2024-07-23 14:07] LABS: Alanine Aminotransferase 11 U/L (0-33); Albumin Level 3.6 g/dL (3.5-5.2); Alkaline Phosphatase 106 U/L (35-105); Anion Gap 16.4 (5-19); Aspartate Amino Transferase 17 U/L (0-32); Blood Urea Nitrogen 5 mg/dL (6-20); Calcium 8.8 mg/dL (8.5-10.5); Carbon Dioxide 23 mmol/L (22-29); Chloride 103 mmol/L (98-107); Creatinine Clr Calc Pharmacy 251.6991; Globulin 3.3 g/dL (1.3-4.6); Glomerular Filtration Rate 183.8 mL/min (90-130); Glucose 90 mg/dL (65-115); Osmolality Calculated 283 mOsm/kg (285-295); Potassium 4.4 mmol/L (3.5-5.1); Sodium 138 mmol/L (136-145); Total Bilirubin 0.2 mg/dL (0.15-1.2); Total Protein 6.9 g/dL (6.6-8.7); Uric Acid 4.3 mg/dL (2.4-5.7)
[2024-07-23 14:12] LABS: Urine Creatinine 86 mg/dL (28-217); Urine Protein Random 17 mg/dL
[2024-07-23] MEDS: labetalol 200 mg Tablet PO (16:34)
--- NOTE | 2024-07-23 17:01 | PM.OPHPUD ---
Labor & Delivery H&P Update Date of Procedure: July 23, 2024 Admission Diagnosis: Related Problem List Diagnoses (1) Gestational hypertension: (2) 37 weeks gestation of : A&P Assessment and plan (1) Gestational hypertension: Status: Acute Qualifiers: Trimester: third trimester Qualified Code(s): O13.3 - Gestational [-induced] hypertension without significant proteinuria, third trimester (2) 37 weeks gestation of : Status: Acute
[2024-07-23] MEDS: miSOPROStol 100 mcg tablet 25 MCG VAGINAL (18:49)
--- NOTE | 2024-07-23 21:07 | ANES.PREANE2 ---
Pre-Anesthetic Assessment Height/Weight: Height 1.6 m Weight 120.656 kg Pulse Resp BP O2 Del Method 85 16 133/79 Room Air 07/23/24 20:43 07/23/24 13:25 07/23/24 20:43 07/23/24 15:36 Familial anesthetic complications: None Was Beta Swetha taken within 24 hours: N/A Was Clonidine taken within 24 hours: N/A Last intake: 1000 solid food Social No alcohol and No tobacco Exam alert, oriented x 3, clear to auscultation bilaterally and regular rate & rhythm Airway Submandibular: within normal limits Cervical ROM: within normal limits Mallampati: Class II Dentition: full History/ROS No significant history except as noted and No significant complaints Pulmonary None reported CV/HEM Anemia, Arrythmia and Hypertension (Gestational) CONCLUSIONS LV systolic function is normal with EF of 55-60% Normal diastolic function Right ventricle is mildly dilated Mild tricuspid regurgitation. Mild pulmonary hypertension No comparison studies are available CONCLUSION: 1. Exercise capacity is fair. 2. Heart rate response was appropriate. 3. Blood pressure response was appropriate. 4. Symptoms not suggestive of ischemia. 5. Electrocardiogram portion of the stress test was not suggestive of ischemia. None reported Hepatic None reported GI Gastroesophageal Reflux Disease Metabolic Morbid Obesity [facility] [place] None reported Neuropsych None reported Anesthetic Plan ASA status: 3 Anesthesia: Anesthesia Evaluation, General and Regional (specify below) (Labor epidural) Risk of > 500 ml blood loss (7ml/kg in children): Yes, adequate IV access and fluids planned Medications/Allergies Home Medications Medication Instructions Recorded Confirmed Last Taken Type cetirizine 10 mg tablet (Zyrtec) 10 mg PO DAILY 12/15/21 09/23/23 Unknown History fluticasone propionate 50 1 spray intranasal DAILY 12/15/21 09/23/23 Unknown History mcg/actuation nasal spray,suspension vit no.95-ferrous 2 tab PO DAILY 12/15/21 09/23/23 Unknown History fumarate 28 mg-folic acid 800 mcg tablet ( Multivitamins) ferrous gluconate 324 mg (37.5 mg 324 mg PO BIDWM #60 tabs 12/17/21 09/23/23 Unknown Rx iron) tablet epinephrine 0.3 mg/0.3 mL 0.3 mg (0.3 mL) IM Q10M PRN 03/22/22 09/23/23 Unknown Rx injection, auto-injector anaphylaxis #2 ea oseltamivir 75 mg capsule (Tamiflu) 75 mg PO BID 5 days #10 caps 09/23/23 09/23/23 Unknown Rx promethazine-DM 6.25 mg-15 mg/5 mL 7.5 ml PO Q6H PRN cough #118 mL 09/23/23 09/23/23 Unknown Rx oral syrup Allergies Allergy/AdvReac Type Severity Reaction Status Date / Time No Known Allergies Allergy Verified 09/23/23 12:37 Current Medications Generic Name Dose Route Start Last Admin Trade Name Freq PRN Reason Stop Dose Admin Labetalol HCl 200 mg 07/23/24 16:15 07/23/24 16:34 Labetalol 200 Mg Tablet PO 200 mg ONCE URSULA Administration Misoprostol 25 mcg 07/23/24 18:45 07/23/24 18:49 Misoprostol 100 Mcg Tablet VAGINAL 07/23/24 22:46 25 mcg Q4H URSULA Administration PFS Anesthesia Medical History (Updated 07/23/24 @ 17:02 by Carloz Flores MD) Morbid obesity 37 weeks gestation of (~07/23/24) Preeclampsia Spontaneous vaginal delivery Family History Other CAD (coronary artery disease) Clotting disorder Social History Smoking and tobacco/nicotine status: never used tobacco/nicotine Alcohol intake: never Substance/Drug Use: never Caregiver/support person: Yes Lives independently: Yes Household members: family Housing: House Marital status: Female Reproductive History : 4 Data Anesthesia 07/23/24 13:35 07/23/24 13:35 Short CBC 07/23/24 Range/Units 13:35 WBC 7.09 (3.29-11.43) 10^3/uL Hgb 11.60 (11.27-16.99) g/dL Hct 36.2 (36-47) % MCV 89.2 (85-98) fl Plt Count 261 (157-399) 10^3/cmm Neut % (Auto) 73.7 % Neut # (Auto) 5.22 (1.8-7.7) 10^3/uL BMP 07/23/24 13:35 Sodium 138 Potassium 4.4 Chloride 103 Carbon Dioxide 23 BUN 5 L Creatinine 0.4 L Glucose 90 Calcium 8.8 Liver Function 07/23/24 Range/Units 13:35 Total Bilirubin 0.2 (0.15-1.2) mg/dL AST 17 (0-32) U/L ALT 11 (0-33) U/L Alkaline Phosphatase 106 H (35-105) U/L Albumin 3.6 (3.5-5.2) g/dL Urine 07/23/24 Range/Units 13:35 Urine Color Yellow (Yellow) Urine Appearance Clear (CLEAR) Urine pH 7.0 (5-7) Ur Specific [place] 1.015 (1.005-1.030) Urine Protein Trace A (Negative) Urine Glucose (UA) Negative (Normal) Urine Ketones 2+ H (Negative) Urine Nitrate Negative (Negative) Urine Bilirubin Negative (Negative) Ur Leukocyte Esterase 1+ A (Negative) Urine RBC 3-5 (0-2) /hpf Urine WBC 11-20 H (0-5) /hpf Blood Bank 07/23/24 17:26 Blood Type A Negative Rho(D) Type Rh negative Antibody Screen Negative Cardiac Studies: Echocardiogram 12/15/21 Sestamibi Stress Test (Cardiology) 12/16/21 Cardiac Event Monitor 12/17/21
[2024-07-24] VITALS (56 sets, daily range): BP systolic 115–221; BP diastolic 60–115; PULSE 69–125; RESP 16; TEMP 36.4–36.9; O2SAT 98–100
[2024-07-24] MEDS: miSOPROStol 100 mcg tablet 25 MCG VAGINAL ×2 (00:10→04:57)
[2024-07-24] MEDS: calcium carbonate 500 mg Chew Tablet 1000 MG PO (04:28)
[2024-07-24] MEDS: lactated ringers 1,000 ML 999 ML IV ×2 (05:40→06:43)
[2024-07-24] MEDS: ROPivacaine syringe 100 MG/50 ML SYRINGE 10 MG EPIDURAL (06:58)
--- NOTE | 2024-07-24 07:07 | ANES.PROC ---
Anesthesia Procedures Procedure/Date: 07/24/24 Epidural: Time Out Performed: Yes Consents Signed: Procedure Consent Consent: requested by attending/covering physician, from patient, from other, risks and benefits reviewed and patient agrees to proceed Lumbar Level: L3-L4 Epidural position: sitting Epidural procedure: sterile prep of area, 1% lidocaine to numb the area, 18 g needle, negative for paresthesia passed, neg for paresthesia, test dose given, 1.5% xylocaine 1:200k epi (5), 0.2% Ropivacaine bolus ml (3), placed PCEA, no systemic response, sterile dressing applied, L.U.D. no apparent complications and 0.2% Ropiavacaine @ mls/hr (10) Additional Comments: ALY at 6 cm, threaded to 12 cm. Patient reported pain free contraction and states her legs do feel a bit warm after bolus, but no dense sensory deficit or motor weakness. Followed for 2 BP cycles after bolus to confirm no occurence of immediate onset- hypotension.
[2024-07-24] MEDS: oxytocin 30 UNIT/500 ML BAG 600 UNIT IV (10:20)
--- NOTE | 2024-07-24 10:27 | P.PCNOB_ITS ---
Delivery Note: Date of delivery: July 24, 2024 Pre-delivery diagnoses: 34-year-old 4 para 3-0-0-3 Post-delivery diagnoses: Status post spontaneous vaginal delivery Procedure: Spontaneous vaginal delivery Delivering Physician: Carloz Flores Estimated blood loss (mL): 150 Post Delivery Diagnoses: Gestational hypertension: Qualifiers: Trimester: third trimester Qualified Code(s): O13.3 - Gestational [- induced] hypertension without significant proteinuria, third trimester Pre-Delivery Course: The patient presented to the hospital the night prior to delivery due to elevated blood pressures in the office. She had no signs or symptoms of preeclampsia otherwise. She demonstrated persistent elevated blood pressures and the hospital. Her preeclamptic workup was otherwise negative. Due to her gestational age, the decision was made to proceed with induction. She did have a couple of severe blood pressures, but otherwise had elevated blood pressures that were not severe. She was placed on labetalol 200 mg p.o. x 1. She had no more severe blood pressures through the night. She was placed on Cytotec 25 mcg x 3. An amniotomy was performed. An epidural was placed. She progressed complete without difficulty. Delivery: DELIVERY: The patient progressed to complete without difficulty. She delivered a female with a weight of 6 pounds 9 ounces with Apgars of 10, 10. The baby was delivered from the [] position. The baby's mouth and nose were suctioned at the site of the perineum. The baby was then completely delivered and placed on the mother's abdomen. The cord was then clamped and cut. There was no nuchal cord. There was no meconium. The placenta and 3 vessel cord were delivered intact shortly thereafter. The perineum and vaginal vault were carefully examined. No lacerations were noted. Both the mother and the baby were in stable condition. History History History 4 Term 3 0 Miscarriages/Ectopic 0 Living Children 3 A&P Assessment and plan (1) Gestational hypertension: Qualifiers: Trimester: third trimester Qualified Code(s): O13.3 - Gestational [-induced] hypertension without significant proteinuria, third trimester (2) 37 weeks gestation of : (3) Spontaneous vaginal delivery: I anticipate routine care. Coding Level of Care Code Acute Code for Chg Fwd Diagnoses Gestational hypertension, third trimester O13.3 Trimester: third trimester 37 weeks gestation of Z3A.37 Spontaneous vaginal delivery O80
[2024-07-24] MEDS: ibuprofen 800 mg tablet PO ×2 (14:52→20:08)
[2024-07-24] MEDS: NIFEdipine ER (24 hr) 30 mg Tablet PO (20:08)
[2024-07-24] MEDS: docusate sodium 100 mg Capsule PO (20:08)
[2024-07-24 22:56] LABS: Hematocrit 28.7 % (36-47); Mean Corpuscular HGB Conc 32.8 g/dL (30-55); Mean Corpuscular Hemoglobin 28.9 pg (27-33); Mean Corpuscular Volume 88.3 fl (85-98); Mean Platelet Volume 9.8 fL (7.4-10.4); Platelet Count 218 10^3/cmm (157-399); Red Blood Count 3.25 10^6/uL (3.85-5.65); White Blood Count 7.86 10^3/uL (3.29-11.43)
[2024-07-25] VITALS: BP 116/78; PULSE 79; RESP 15; TEMP 36.6; O2SAT 98
[2024-07-25] MEDS: ibuprofen 800 mg tablet PO ×2 (09:15→16:45)
[2024-07-25] MEDS: docusate sodium 100 mg Capsule PO (09:15)
[2024-07-25] MEDS: PRENATAL VIT NO.130/IRON/FOLIC 1 EACH TABLET PO (09:15)
[2024-07-25 11:45] VITALS: BP 143/84; PULSE 95; RESP 16; TEMP 36.7; O2SAT 98
--- NOTE | 2024-07-25 12:13 | P.DS_ITS ---
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 Date of Admission: 07/23/24 18:15 Date of Discharge: 07/25/24 Attending Provider at Admission: Carloz Flores MD Attending Provider at Discharge: Carloz Flores MD Primary Care Provider: Carloz Flores MD Diagnoses at Discharge Discharge Diagnosis (1) Gestational hypertension: Status: Acute Qualifiers: Trimester: third trimester Qualified Code(s): O13.3 - Gestational [-induced] hypertension without significant proteinuria, third trime ster (2) 37 weeks gestation of : Status: Acute (3) Spontaneous vaginal delivery: Status: Acute Reason for Visit Reason for Visit: increased Blood pressure Hospital Course Hospital Course The patient presented to the hospital due to having gestational hypertension in the office. In the hospital she was found to have a variety of blood pressures. Somewhat elevated. She would even have an occasional severe blood pressure. Her preeclamptic workup which was done which was found to be completely negative. Due to her gestational age and her new onset elevated blood pressures, she was induced. She was placed on Cytotec 25 mcg x 3. An amniotomy was performed. She progressed complete without difficulty. Her delivery was unremarkable. Her course was notable for having a couple of isolated severe blood pressures. After doing a manual check she was found to be in the normal range. In general her blood pressures were in the normal range. She was on Procardia 30 XL during her stay in the hospital. Information Peripartum Data: Infant Delivery Method: Vaginal Physical Exam Narrative: The patient is alert. She appears comfortable. Her heart has a regular rate and rhythm with no murmurs appreciated. Lungs are clear to auscultation bilaterally. Her fundus is firm and below the umbilicus. History History History 4 Term 3 0 Miscarriages/Ectopic 0 Living Children 3 Discharge Data Studies Completed and Pending Laboratory Results WBC 7.86 10^3/uL (3.29-11.43) 07/24/24 22:15 RBC 3.25 10^6/uL (3.85-5.65) L 07/24/24 22:15 Hgb 9.40 g/dL (11.27-16.99) L 07/24/24 22:15 Hct 28.7 % (36-47) L 07/24/24 22:15 MCV 88.3 fl (85-98) 07/24/24 22:15 MCH 28.9 pg (27-33) 07/24/24 22:15 MCHC 32.8 g/dL (30-55) 07/24/24 22:15 RDW 15.0 % (12.1-15.1) 07/24/24 22:15 Plt Count 218 10^3/cmm (157-399) 07/24/24 22:15 MPV 9.8 fL (7.4-10.4) 07/24/24 22:15 Neut % (Auto) 73.7 % 07/23/24 13:35 Lymph % (Auto) 18.3 % 07/23/24 13:35 [place] % (Auto) 6.3 % 07/23/24 13:35 Eos % (Auto) 1.1 % 07/23/24 13:35 Baso % (Auto) 0.3 % 07/23/24 13:35 Neut # (Auto) 5.22 10^3/uL (1.8-7.7) 07/23/24 13:35 Lymph # (Auto) 1.3 10^3/uL (0.8-4.8) 07/23/24 13:35 [place] # (Auto) 0.5 10^3/uL (0.2-0.9) 07/23/24 13:35 Eos # (Auto) 0.1 10^3/uL (0.0-0.8) 07/23/24 13:35 Baso # (Auto) 0.0 10^3/uL (0.0-0.1) 07/23/24 13:35 Nucleated RBC % (auto) 0 % 07/23/24 13:35 Nucleated RBCs # 0.0 /100WBC 07/23/24 13:35 Sodium 138 mmol/L (136-145) 07/23/24 13:35 Potassium 4.4 mmol/L (3.5-5.1) 07/23/24 13:35 Chloride 103 mmol/L (98-107) 07/23/24 13:35 Carbon Dioxide 23 mmol/L (22-29) 07/23/24 13:35 Anion Gap 16.4 (5-19) 07/23/24 13:35 BUN 5 mg/dL (6-20) L 07/23/24 13:35 Creatinine 0.4 mg/dL (0.5-0.9) L 07/23/24 13:35 GFR Calculation 183.8 mL/min (90-130) H 07/23/24 13:35 Glucose 90 mg/dL (65-115) 07/23/24 13:35 Calculated Osmolality 283 mOsm/kg (285-295) L 07/23/24 13:35 Uric Acid 4.3 mg/dL (2.4-5.7) 07/23/24 13:35 Calcium 8.8 mg/dL (8.5-10.5) 07/23/24 13:35 Total Bilirubin 0.2 mg/dL (0.15-1.2) 07/23/24 13:35 AST 17 U/L (0-32) 07/23/24 13:35 ALT 11 U/L (0-33) 07/23/24 13:35 Alkaline Phosphatase 106 U/L (35-105) H 07/23/24 13:35 Total Protein 6.9 g/dL (6.6-8.7) 07/23/24 13:35 Albumin 3.6 g/dL (3.5-5.2) 07/23/24 13:35 Globulin 3.3 g/dL (1.3-4.6) 07/23/24 13:35 Urine Color Yellow (Yellow) 07/23/24 13:35 Urine Appearance Clear (CLEAR) 07/23/24 13:35 Urine pH 7.0 (5-7) 07/23/24 13:35 Ur Specific [place] 1.015 (1.005-1.030) 07/23/24 13:35 Urine Protein Trace (Negative) A 07/23/24 13:35 Urine Glucose (UA) Negative (Normal) 07/23/24 13:35 Urine Ketones 2+ (Negative) H 07/23/24 13:35 Urine Blood 1+ (Negative) A 07/23/24 13:35 Urine Nitrate Negative (Negative) 07/23/24 13:35 Urine Bilirubin Negative (Negative) 07/23/24 13:35 Urine Urobilinogen 1.0 mg/dL (Negative) 07/23/24 13:35 Ur Leukocyte Esterase 1+ (Negative) A 07/23/24 13:35 Urine RBC 3-5 /hpf (0-2) 07/23/24 13:35 Urine WBC 11-20 /hpf (0-5) H 07/23/24 13:35 Ur Squamous Epith Cells 6-10 /hpf (0-5) 07/23/24 13:35 Amorphous Sediment Not Reportable 07/23/24 13:35 Urine Bacteria Trace /hpf (NONE) 07/23/24 13:35 Hyaline Casts 2.87 /lpf 07/23/24 13:35 U Random Total Protein 17 mg/dL 07/23/24 13:35 Urine Creatinine 86 mg/dL (28-217) 07/23/24 13:35 Protein/Creatinin Ratio 0.20 mg/mg CR 07/23/24 13:35 Blood Type A Negative 07/23/24 17: Rho(D) Type Rh negative 07/23/24 17:26 Antibody Screen Negative 07/23/24 17:26 Vitals Last Vital Signs Temp 98.1 F 07/25/24 11:45 Pulse 95 07/25/24 11:45 Resp 16 07/25/24 11:45 BP 143/84 07/25/24 11:45 Pulse Ox 98 07/25/24 11:45 O2 Del Method Room Air 07/25/24 11:45 Results Labs OB ([facility]): Blood Type A Negative 07/23/24 Antibody Screen Negative 07/23/24 Hct 28.7 % (36-47) L 07/24/24 Hgb 9.40 g/dL (11.27-16.99) L 07/24/24 Rho(D) Type Rh negative 07/23/24 Plt Count 218 10^3/cmm (157-399) 07/24/24 Uric Acid 4.3 mg/dL (2.4-5.7) 07/23/24 Micro Urine Specimen 07/23/24 Discharge Plan Discharge Patient Disposition: Home Condition: Stable Prescriptions: New nifedipine [Procardia XL] 30 mg tablet extended release 24hr 30 mg PO DAILY Qty: 30 1RF Continued epinephrine 0.3 mg/0.3 mL auto-injector 0.3 mg IM Q10M PRN (Reason: anaphylaxis) Qty: 2 0RF Rx Instructions: for 2 doses Zyrtec 10 mg Tablet 10 mg PO DAILY fluticasone propionate 50 mcg/actuation [place],Suspension 1 spray INTRANASAL DAILY Rx Instructions: administer into each nostril Multivitamins 28 mg iron- 800 mcg Tablet 2 tab PO DAILY ferrous gluconate 324 mg (37.5 mg iron) Tablet 324 mg PO BIDWM Qty: 60 0RF Discontinued promethazine-DM 6.25-15 mg/5 mL syrup 7.5 ml PO Q6H PRN (Reason: cough) Qty: 118 0RF oseltamivir [Tamiflu] 75 mg capsule 75 mg PO BID 5 Days Qty: 10 0RF Discharge Orders: Discharge Order (Routine); Ordered 07/25/24 Ordered By: Carloz Flores Referrals: Carloz Flores MD [Primary Care Provider] - 4-7 days (Please correlate appointment with baby's appointment.) Discharge Diet: Usual diet Discharge Activity: Limit activity as instructed Patient Instructions: Depression (DC), Bleeding (DC), Preeclampsia and Eclampsia After Delivery (GEN), Hemorrhage (DC), OB Discharge Report, OB Food/Drug Interaction Guide, OB Care at Home, Opioid Safety, OB Home Care, OB Vaginal Deliveries 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
--- NOTE | 2024-07-25 14:17 | ANE.PACU2 ---
Inpatient post-anesthesia follow up: Airway intact: Yes Vital signs: Temperature 98.1 F Pulse Rate 95 Respiratory Rate 16 Blood Pressure 143/84 Pulse Oximetry 98 Oxygen Delivery Me thod Room Air Oxygen Flow Rate Fraction of Inspir ed Oxygen Hydration adequate: Yes Nausea and vomiting: No Mental status: Baseline Epidural Start/End: Epidural Start Date: 07/24/24 Epidural Start Time: 06:38 Epidural End Date: 07/24/24 Epidural End Time: 10:25
[2024-07-25 16:45] VITALS: BP 145/79; PULSE 90; RESP 15; TEMP 36.8; O2SAT 98
[2024-07-25] MEDS: NIFEdipine ER (24 hr) 30 mg Tablet PO (16:55)
== END 2024-07-25 17:10 | disposition home or self-care (01) | DRG 807 ==
LOC: OPOB 07-24 09:10 → OBGYN 07-24 09:10
PROVIDERS: Admitting Provider Family Medicine; PCP Family Medicine; Visit Provider Family Medicine
DX: O13.4 Gestational [pregnancy-induced] hypertension without significant proteinuria, complicating childbirth (principal); Z37.0 Single live birth; Z3A.37 37 weeks gestation of pregnancy
CPT/HCPCS: 36415; 59025; 59409; 80053; 81001; 82570; 84156; 84550; 85025; 85027; 86850; 86900; 87086; 98960; 99211; J2590